=== PATIENT | female | born 1995 | race Caucasian/White ===

== ENCOUNTER → 2017-04-17 10:00 | Outpatient (CLI) | payer OTHER, BC, SELFPAY ==
[2017-04-18 10:18] LABS: Hep A Ab, IgM Negative (Negative); Hepatitis B Core Antibody IgM Negative (Negative); Hepatitis B Surface Antigen Negative (Negative)
[2017-04-19 06:40] LABS: HIV Screen 4th Generation wRfx Non Reactive (Non Reactive)
[2017-04-19 06:41] LABS: Hepatitis C Antibody <0.1 s/co ratio (0.0-0.9); Vitamin B12 189 pg/mL (232-1245)
== END ==
PROVIDERS: PCP Family Medicine; Visit Provider Family Medicine
DX: E53.8 Deficiency of other specified B group vitamins (principal); W46.0XXA Contact with hypodermic needle, initial encounter
CPT/HCPCS: 36415; 80074; 82607; 82746; 86703; G0432

== ENCOUNTER → 2017-09-04 10:43 | Outpatient (CLI) | payer OTHER, BC, SELFPAY ==
[2017-09-04 11:03] LABS: Basophils % 0.3 % (0.1-2.0); Eosinophils # 0.1 K/mm3 (0.0-0.4); Eosinophils % 1.3 % (0.1-12.0); Hemoglobin 14.7 g/dL (12.2-16.2); Lymphocytes % 28.1 K/mm3 (10-50); Mean Corpuscular HGB Conc 36.7 g/dL (31.8-35.4); Mean Corpuscular Hemoglobin 33.7 pg (27.0-31.2); Mean Corpuscular Volume 91.8 fl (81-99); Mean Platelet Volume 7.1 fl (7.4-10.4); Monocytes # 0.3 K/mm3 (0.1-1.0); Monocytes % 4.6 % (1.7-9.3); Neutrophils # 4.6 K/mm3 (1.8-7.8); Neutrophils % 65.7 % (37.0-80.0); Platelet Count 236 K/mm3 (142-424); Red Blood Count 4.36 M/mm3 (4.20-5.40); Red Cell Distribution Width 12.3 % (11.5-17.5)
[2017-09-05 15:24] LABS: Vitamin B12 452 pg/mL (232-1245)
== END ==
PROVIDERS: Visit Provider Family Medicine
DX: E53.8 Deficiency of other specified B group vitamins (principal)
CPT/HCPCS: 36415; 82607; 85025

== ENCOUNTER → 2018-01-05 14:42 | Outpatient (CLI) | payer OTHER, BC, SELFPAY ==
[2018-01-05 17:14] LABS: Free T4 (Free Thyroxine) 1.01 ng/dl (0.76-1.46); Thyroid Stimulating Hormone 2.44 uIU/ml (0.358-3.740)
[2018-01-08 03:56] LABS: Vitamin B12 280 pg/mL (232-1245)
== END ==
PROVIDERS: Visit Provider Emergency Medicine
DX: E53.8 Deficiency of other specified B group vitamins (principal); R53.83 Other fatigue
CPT/HCPCS: 36415; 82607; 84439; 84443

== ENCOUNTER → 2018-01-22 15:13 | Outpatient (CLI) | payer OTHER, SELFPAY ==
[2018-01-24 07:41] LABS: HIV Screen 4th Generation wRfx Non Reactive (Non Reactive)
[2018-01-24 16:01] LABS: Hep B Surface Ab, Qual Non Reactive (.); Hepatitis B Surface Antigen Negative (Negative); Hepatitis C Antibody <0.1 s/co ratio (0.0-0.9)
== END ==
PROVIDERS: Visit Provider Emergency Medicine
DX: S61.432D Puncture wound without foreign body of left hand, subsequent encounter (principal)
CPT/HCPCS: 86703; 86706; 87340; 87380; G0432

== ENCOUNTER → 2018-04-11 15:11 | Outpatient (CLI) | payer OTHER, BC, SELFPAY ==
--- NOTE | 2018-04-11 15:26 | XR_ITS ---
XR wrist LT min 3V HISTORY ITS.REASON: left wrist pain ORDERING PHYSICIAN: Florecita Sorenson MD PATIENT AGE: 22 years Comparison: 11/02/2016 FINDINGS: There has been a prior bone plate placed along the anterior distal aspect of the radius. There is good alignment. There is mild increased density of the lunate. This is of questionable clinical significance . Otherwise negative. IMPRESSION: 1. Prior ORIF distal radius with good alignment. 2. Slight sclerosis of the lunate raising the question of avascular necrosis of the lunate otherwise negative
== END ==
PROVIDERS: PCP Family Medicine; Visit Provider Orthopaedic Surgery
DX: M25.532 Pain in left wrist (principal)
CPT/HCPCS: 73110

== ENCOUNTER → 2018-04-25 14:48 | Outpatient (CLI) | payer OTHER, BC, SELFPAY ==
--- NOTE | 2018-04-25 14:52 | XR_ITS ---
XR wrist LT 2V HISTORY follow-up ORIF ITS.REASON: 20 degree LATERAL ORDERING PHYSICIAN: Florecita Sorenson MD PATIENT AGE: 22 years Comparison: 04/11/2018 FINDINGS: Only a 20 degree lateral views obtained. An anterior bone plate remains present stabilizing the old distal radial fracture. The second from the most proximal screw within the bone plate extends beyond the dorsal bony cortex x 1.5 mm. The most proximal screw appears to extend just beyond the bony cortex bilateral some 1 mm. IMPRESSION: The 2 proximal screws within the anterior radial bone plate appear to extend beyond the bony cortex of the dorsal radius as described above
== END ==
PROVIDERS: PCP Family Medicine; Visit Provider Orthopaedic Surgery
DX: M25.532 Pain in left wrist (principal)
CPT/HCPCS: 73100

== ENCOUNTER → 2018-05-07 14:31 | Outpatient (CLI) | payer OTHER, BC, SELFPAY ==
[2018-05-09 15:01] LABS: Vitamin B12 288 pg/mL (232-1245)
== END ==
PROVIDERS: Visit Provider Emergency Medicine
DX: E53.8 Deficiency of other specified B group vitamins (principal)
CPT/HCPCS: 36415; 82607

== ENCOUNTER → 2018-07-11 16:11 | Outpatient (CLI) | payer OTHER, BC, SELFPAY ==
[2018-07-13 10:38] LABS: Vitamin B12 359 pg/mL (232-1245)
== END ==
PROVIDERS: PCP Emergency Medicine; Visit Provider Emergency Medicine
DX: E53.8 Deficiency of other specified B group vitamins (principal)
CPT/HCPCS: 82607

== ENCOUNTER → 2018-09-05 15:39 | Outpatient (CLI) | payer OTHER, BC, SELFPAY ==
[2018-09-07 17:11] LABS: Vitamin B12 443
== END ==
PROVIDERS: Visit Provider Emergency Medicine
DX: E53.8 Deficiency of other specified B group vitamins (principal)
CPT/HCPCS: 36415; 82607

== ENCOUNTER → 2018-11-27 20:21 | Outpatient (CLI) | payer OTHER, BC, SELFPAY ==
[2018-11-29 23:10] LABS: Vitamin B12 542 pg/mL (232-1245)
== END ==
PROVIDERS: Visit Provider Emergency Medicine
DX: E53.8 Deficiency of other specified B group vitamins (principal)
CPT/HCPCS: 36415; 82607

== ENCOUNTER → 2018-12-04 13:36 | Outpatient (CLI) | payer OTHER, BC, SELFPAY ==
--- NOTE | 2018-12-04 13:38 | CA_ITS ---
APPROVED REPORT EXAM: Comprehensive 2D, Doppler, and color-flow Echocardiogram Soda Tester: Claudia Montanez RVT Ht: 5 ft 2 in Wt: 168lbs BSA: 1.78 BP: 126/81 mmHg Indications: Chest Pain, Palpitations,Sinus Tach, Hx SVT 2D Dimensions LVOT 2.00 cm (M/F) 1.5-2.5 M-Mode Dimensions RVDd 2.50 cm (0.9-2.6) LA Diam 2.70 cm (1.9-4.0) LVDd 4.60 cm (3.5-5.7) Ao Diam 2.70 cm (2.0-3.7) LVDs 2.70 cm (3.5-5.7) AV Cusp 1.80 cm (1.5-2.6) IVSd 1.20 cm (0.6-1.1) PWd 0.60 cm (0.6-1.1) EF (Teich) 72.30% FS 41.30% EDV (Teich) 97.30 mL ESV (Teich) 27.00 mL LV Diastology E/A Ratio 1.7 MED E' 9.46 (< 7 cm/sec) E'/MED E' Ratio 8.90 (>14) LAT E' 20.20 (<10 cm/sec) E/LAT E' Ratio 4.20 (>14) Aortic Valve AoV Peak Karl. 92.80 (50-130 cm/s) AO Peak GR. 3.00 mmHg Mitral Valve MV E Max Karl. 84.40 (40-130 cm/s) MV A Velocity 50.80 (40-130 cm/s) E/A Ratio 1.70 Pulmonary Valve PA Accel Time 151.00 (>120 msec) Left Ventricle Left atrium is normal size, left ventricle is normal size, there is no concentric left ventricular hypertrophy, visually estimated ejection fraction 55% with no regional wall motion abnormality. Right Ventricle Right atrium and right ventricular normal size and contractility. Aortic Valve Aortic valve is grossly normal, there is no aortic stenosis aortic insufficiency. Mitral Valve Mitral valve is grossly normal, there is mild mitral regurgitation. Tricuspid Valve Tricuspid valve is grossly normal, there is mild tricuspid regurgitation. Tricuspid regurgitation jet velocity is inadequate for question of the right ventricular systolic pressure. Pulmonic Valve Pulmonic valve is grossly normal. Great Vessels Aortic root is normal size. Pericardium No significant pericardial effusion noted. Conclusion 1. Normal left ventricular size, preserved left ventricular systolic function, visually estimated ejection fraction 55% with no regional wall motion abnormality, diastolic parameters are within normal range. 2. Mild mitral and tricuspid regurgitation 3. No significant pericardial effusion noted. Electronically signed by : Davi Serrano, 12/05/2018 06:52:15
== END ==
PROVIDERS: PCP Emergency Medicine; Visit Provider Urology
DX: R00.0 Tachycardia, unspecified (principal); R00.2 Palpitations; R07.9 Chest pain, unspecified
CPT/HCPCS: 93306

== ENCOUNTER → 2018-12-13 11:20 | Outpatient (CLI) | payer OTHER, BC, SELFPAY | PROVIDERS: Visit Provider Internal Medicine Cardiovascular Disease | DX: R00.2 Palpitations (principal); R42 Dizziness and giddiness; R53.83 Other fatigue | CPT/HCPCS: 93270 ==

== ENCOUNTER → 2019-01-03 22:04 | Outpatient (CLI) | payer OTHER, BC, SELFPAY ==
[2019-01-03 22:34] VITALS: BMI 27.4
== END ==
PROVIDERS: PCP Emergency Medicine; Visit Provider Emergency Medicine
DX: J32.9 Chronic sinusitis, unspecified (principal)
CPT/HCPCS: 96372; G0463

== ENCOUNTER → 2019-05-08 19:53 | Outpatient (CLI) | payer OTHER, SELFPAY ==
[2019-05-10 15:43] LABS: Vitamin B12 467 pg/mL (232-1245)
[2019-05-10 15:44] LABS: Folate 11.8 ng/mL (>3.0)
== END ==
PROVIDERS: PCP Family Medicine; Visit Provider Nurse Practitioner
DX: E53.8 Deficiency of other specified B group vitamins (principal)
CPT/HCPCS: 36415; 82607; 82746

== ENCOUNTER 2019-12-06 02:43 | Emergency (ER) | payer OTHER, BC, SELFPAY ==
[2019-12-06 02:44] VITALS: BP 135/85; PULSE 102; RESP 16; TEMP 36.7; O2SAT 98; BMI 32.9
--- NOTE | 2019-12-06 03:12 | HMH.EDWNDL ---
ED Disposition Clinical Impression: Laceration Disposition: Home, Self-Care Condition on Discharge: Good Instructions: DI for Laceration Repair Additional Instructions: suture out 10 days Referrals: Nolan Colon MD [Primary Care Provider] - - Critical Care Critical Care Time: No Attestation: On 12/06/19, the high probability of a clinically significant, sudden or life threatening deterioration of the following system(s) required my full and direct attention, intervention and personal management. The time I documented below is in addition to time spent performing reported procedures but includes the following listed in this critical care notation. Medical Decision Making - Medical Records Medical records reviewed: Yes: I reviewed the patient's medical records. - Neri Inquiry Pt receiving controlled substance: No Vital Signs: 12/06/19 02:44 Temperature 98.1 F Temperature Source Oral Pulse Rate [Left Radial] 102 H Respiratory Rate 16 Blood Pressure [Right Arm] 135/85 Blood Pressure Mean [Right Arm] 101 Blood Pressure Source [Right Arm] Automatic Cuff Blood Pressure Position [Right Arm] Sitting 02 Sat by Pulse Oximetry 98 Oxygen Delivery Method Room Air Wound/Laceration HPI - General Chief Complaint: Wound/Laceration Stated Complaint: AO cut L foot on glass Time Seen by Provider: 12/06/19 03:00 Mode of Arrival: Ambulatory Source of Information: Patient, Medical Record Limitations: No Limitations Description of Symptoms (Recalled from ER Triage Doc. by RN): pt broke a wine glass and stepped on one of the glass pieces. pt has a lac to the bottom of her left foot - History of Present Illness HPI narrative: lac to sole of lt foot tonight Onset (ago): hour(s) Extremity Location: Left: foot Place: home Patient tetanus UTD: Yes Context: accidental Associated symptoms: none - Related Data Home Medications Medication Instructions Recorded Confirmed vitamin [id number] B1 1,000 100 ml IM MONTHLY 11/28/18 11/05/19 mcg-100 mg/mL injection solution vitamin B complex 1 tab PO DAILY 07/11/19 11/05/19 Previous Rx's Medication Instructions Recorded norgestimate 0.25 mg-ethinyl 1 tab PO DAILY #28 tab 05/06/19 estradiol 35 mcg tablet propranolol 40 mg tablet 40 mg PO TID #90 tab 07/11/19 Allergies Allergy/AdvReac Type Severity Reaction Status Date / Time cephalexin [From KEFLEX] Allergy Mild Verified 11/05/19 16:[address] [facility] History - Hepatitis A Screen Drug use history?: No High risk sexual behaviors?: No History of sexually transmitted infection?: No Currently employed?: No Childcare worker?: No Do you have indoor plumbing?: Yes Do you have electricity?: Yes Attestation statement:: This patient has been screened for Hepatitis A risk factors. I have reviewed the patient's past medical history: Yes Medical History: Reports:: Palpitations, Supraventricular Tachycardia Comment: [place] Laterality Cases: Left: Other Other Surgeries: Yes: No Previous Surgery Amputation: No Fractures: No Comment: left wrist- metal plate - Social History Smoking Status: Never smoker Alcohol Intake: never Alcohol Intake Frequency:: holidays/special occasions only Substance Use Type: denies use Occupational Status: employed Family Hx:: Cancer, Diabetes, Heart Attack, Stroke, Hypertension, Hyperlipidemia ROS Obtained: Yes All systems reviewed & no additional complaints - Constitutional Constitutional: Denies fever(s) - Cardiovascular Cardiovascular: Denies chest pain - Respiratory Respiratory: No dyspnea - Gastrointestinal Gastrointestingal: Denies: abdominal pain - Genitourinary Female Genitourinary: Denies hematuria - Musculoskeletal Musculoskeletal: Denies joint pain - Integumentary/Breasts Skin/Breast: Reports as per HPI, Reports other (1.5 cm lac lt foot ) Physical Exam - General General appearance: alert - Head Head exam: normocephalic - Eye Eye e
[2019-12-06 03:28] VITALS: BP 122/75; PULSE 95; RESP 18; TEMP 36.7; O2SAT 99
== END 2019-12-06 03:30 | disposition home or self-care (01) ==
PROVIDERS: Emergency Provider Emergency Medicine; PCP Family Medicine
DX: S91.312A Laceration without foreign body, left foot, initial encounter (principal); W22.8XXA Striking against or struck by other objects, initial encounter; Y92.019 Unspecified place in single-family (private) house as the place of occurrence of the external cause; I47.1 Supraventricular tachycardia; Z88.1 Allergy status to other antibiotic agents
CPT/HCPCS: 12001; 99282

== ENCOUNTER → 2019-12-19 09:47 | Outpatient (CLI) | payer OTHER, BC, SELFPAY ==
[2019-12-19 11:25] LABS: 25-OH Vitamin D, Total 39.4 ng/mL (30-100)
[2019-12-19 12:14] LABS: Vitamin B12 355 pg/mL (239-931)
[2019-12-19 12:15] LABS: Folate 6.25 ng/mL
[2019-12-20 17:32] LABS: Antiparietal Cell Antibody 1.2 Units (0.0-20.0)
[2019-12-25 13:48] LABS: Vitamin B1 113.8 nmol/L (66.5-200.0)
[2020-01-01 03:16] LABS: Vitamin B6 9.3 ug/L (2.0-32.8)
== END ==
PROVIDERS: Visit Provider Family Medicine
DX: R53.83 Other fatigue (principal); D51.8 Other vitamin B12 deficiency anemias; G47.10 Hypersomnia, unspecified
CPT/HCPCS: 36415; 82306; 82607; 82746; 83516; 84207; 84425

== ENCOUNTER → 2020-01-28 01:02 | Outpatient (CLI) | payer OTHER, BC, SELFPAY ==
[2020-01-29 15:48] LABS: Covid-19 Nasal PCR Sendout Lex Not Detected
== END ==
PROVIDERS: PCP Family Medicine
DX: Z01.818 Encounter for other preprocedural examination (principal)
CPT/HCPCS: U0004

== ENCOUNTER 2020-03-13 00:57 | Emergency (ER) | payer OTHER, BC, SELFPAY ==
--- NOTE | 2020-03-13 01:00 | PC.NURSE ---
no additional orders per md at this time.
--- NOTE | 2020-03-13 01:01 | ECG_ITS ---
APPROVED REPORT Exam: Resting ECG HR:147 bpm ECG Measurements Heart Rate 147 AXES ND 130 P 77 QRSd 80 QRS 70 QT 266 T 29 QTc 416 Conclusion Sinus tachycardia Nonspecific ST abnormality Abnormal ECG Electronically signed by : Nolan Christie, 03/13/2020 06:00:11
[2020-03-13 01:02] VITALS: BP 151/110; PULSE 156; RESP 16; TEMP 36.9; O2SAT 100; BMI 25.7
--- NOTE | 2020-03-13 01:02 | HMH.EDGENADL ---
ED Disposition Clinical Impression: Sinus tachycardia, Hypokalemia Disposition: Home, Self-Care Condition on Discharge: Good Instructions: Cardiac Arrhythmia (Alternative Therapy) Additional Instructions: Take potassium as prescribed, also eat a normal diet. Drink plenty of clear fluids and avoid any stimulant use. Return if recurrent palpitations, lightheadedness, syncope, chest pain, weakness, or other new/recurrent symptoms. Prescriptions: Potassium Chloride 20 meq PO DAILY 3 Days #3 tablet.er Prescription Printed Referrals: PCP,No [Primary Care Provider] - - Critical Care Critical Care Time: No Attestation: On , the high probability of a clinically significant, sudden or life threatening deterioration of the following system(s) required my full and direct attention, intervention and personal management. The time I documented below is in addition to time spent performing reported procedures but includes the following listed in this critical care notation. Medical Decision Making - Medical Records Medical records reviewed: Yes: I reviewed the patient's medical records. - Neri Inquiry Pt receiving controlled substance: No Vital Signs: 03/13/20 01:02 03/13/20 01:12 03/13/20 01:16 Temperature 98.5 F Temperature Source Oral Pulse Rate [Right Brachial] 156 H 103 H 106 H Respiratory Rate 16 16 16 Blood Pressure [Right Arm] 151/110 H 132/91 H 128/95 H Blood Pressure Mean [Right Arm] 123 104 106 Blood Pressure Source [Right Arm] Automatic Cuff Blood Pressure Position [Right Arm] Sitting Sitting 02 Sat by Pulse Oximetry 100 98 100 Oxygen Delivery Method Room Air Room Air Room Air 03/13/20 01:30 03/13/20 02:00 Temperature Temperature Source Pulse Rate [Right Brachial] 98 H 94 H Respiratory Rate 17 15 Blood Pressure [Right Arm] 123/87 131/91 H Blood Pressure Mean [Right Arm] 99 104 Blood Pressure Source [Right Arm] Automatic Cuff Automatic Cuff Blood Pressure Position [Right Arm] Supine Supine 02 Sat by Pulse Oximetry 100 98 Oxygen Delivery Method Room Air Room Air - Lab Data Lab Results 03/13/20 01:00: WBC 11.0 H, RBC 4.97, Hgb 15.4, Hct 45.8, MCV 92.2, MCH 31.0, MCHC 33.6, RDW 13.0, Plt Count 320, MPV 7.1 L, Neut % (Auto) 70.8, Lymph % (Auto) 23.1, [place] % (Auto) 5.3, Eos % (Auto) 0.5, Baso % (Auto) 0.4, Neut # (Auto) 7.8, Lymph # (Auto) 2.5, [place] # (Auto) 0.6, Eos # (Auto) 0.1, Baso # (Auto) 0.0 03/13/20 01:00: Sodium 137, Potassium 3.2 L, Chloride 103, Carbon Dioxide 22, Anion Gap 15.2 H, BUN 11, Creatinine 0.70, Estimated Creat Clear 129, Estimated GFR 103, Est GFR ( Amer) 124, Glucose 152 H, Calcium 9.6, Magnesium 1.9, Total Bilirubin 0.3, AST 23, ALT 16, Alkaline Phosphatase 64, Troponin I < 0.01, Total Protein 8.3 H, Albumin 4.7, Globulin 3.6 H, Albumin/Globulin Ratio 1.3, TSH 3.93 03/13/20 01:00: SARS-CoV-2 IgG Ab (Rapid) Negative, SARS-CoV-2 IgM Ab (Rapid) Negative 03/13/20 01:00: Serum HCG, Qual Negative Result diagrams: 03/13/20 01:00 03/13/20 01:00 Orders (Tests/Meds): ED MEDICATIONS Generic Name Dose Route Start Last Admin Trade Name Freq PRN Reason Stop Dose Admin Lactated Ringer's 1,000 mls @ 999 mls/hr 03/13/20 01:15 03/13/20 01:15 Lactated Ringer's 1000 Ml Bag IV 03/13/20 02:15 999 mls/hr .Q1H1M [place] Administration Sodium Chloride 1,000 mls @ 999 mls/hr 03/13/20 01:15 03/13/20 01:15 Sod Chlor 0.9% 1000ml Bag IV 03/13/20 02:15 999 mls/hr .Q1H1M [place] Administration Discontinued Medications Generic Name Dose Route Start Last Admin Trade Name Freq PRN Reason Stop Dose Admin Potassium Chloride/Water 100 mls @ 50 mls/hr 03/13/20 02:08 Potassium Chloride 20meq/100ml Ivpb IV 03/13/20 04:07 ONCE ONE Metoprolol Tartrate 5 mg 03/13/20 01:09 03/13/20 01:11 Metoprolol Tartrate 5mg/5ml Vial IV 03/13/20 01:10 5 mg ONCE ONE Administration Metoprolol Tartrate 50 mg 03/13/20 01:19 03/13/20 01:32 Metoprolol Tartrate
--- NOTE | 2020-03-13 01:07 | XR_ITS ---
PROCEDURE: XR CHEST PORTABLE CLINICAL HISTORY: palpitations COMPARISON: CR CXR CHEST(2 VIEWS-NOT PORTABLE) from 03/18/2016 CR XR CHEST 2V from 11/28/[address] ANGIO CHEST from 11/28/2018 FINDINGS: The cardiomediastinal silhouette and pulmonary vascularity are within normal limits. The lungs are clear without infiltrates, suspicious nodules, or pleural effusions. No acute bony abnormalities. IMPRESSION: No acute findings. Dictated by: Anatoliy Nixon MD 03/13/2020 07:01 Anatoliy Nixon MD in [place] 03/13/2020 07:01
[2020-03-13 01:12] VITALS: BP 132/91; PULSE 103; RESP 16; O2SAT 98
[2020-03-13 01:16] VITALS: BP 128/95; PULSE 106; RESP 16; O2SAT 100
[2020-03-13 01:17] LABS: Basophils % 0.4 % (0.1-2.0); Eosinophils # 0.1 K/mm3 (0.0-0.4); Eosinophils % 0.5 % (0.1-12.0); Hematocrit 45.8 % (37.0-47.0); Hemoglobin 15.4 g/dL (12.2-16.2); Lymphocytes # 2.5 K/mm3 (0.7-4.5); Lymphocytes % 23.1 % (10-50); Mean Corpuscular HGB Conc 33.6 g/dL (31.8-35.4); Mean Corpuscular Volume 92.2 fl (81-99); Mean Platelet Volume 7.1 fl (7.4-10.4); Monocytes # 0.6 K/mm3 (0.1-1.0); Monocytes % 5.3 % (1.7-9.3); Neutrophils # 7.8 K/mm3 (1.8-7.8); Neutrophils % 70.8 % (37.0-80.0); Platelet Count 320 K/mm3 (142-424); Red Blood Count 4.97 M/mm3 (4.20-5.40)
[2020-03-13 01:23] LABS: Chloride 103 mmol/L (98-107); Potassium 3.2 mmoL/L (3.5-5.1); Sodium 137 mmol/L (136-145)
[2020-03-13 01:25] LABS: Alanine Aminotransferase 16 U/L (12-78); Aspartate Amino Transferase 23 U/L (14-36); Blood Urea Nitrogen 11 mg/dl (7-17); Creatinine Clearance Estimated 129 mL/min (50-200); Estimated Glomerular Filt Rate 103 ml/min (>60); GFR (African American) 124 ML/MIN (>60)
[2020-03-13 01:26] LABS: Albumin Level 4.7 g/dl (3.5-5.0); Albumin/Globulin Ratio 1.3 (1.1-1.8); Alkaline Phosphatase 64 U/L (38-126); Anion Gap 15.2 mEq/L (5-15); Bilirubin,Total 0.3 mg/dl (0.2-1.3); Calcium 9.6 mg/dl (8.4-10.2); Carbon Dioxide 22 mmol/L (22.0-30.0); Globulin 3.6 g/dL (1.3-3.2); Glucose 152 mg/dl (74-100); Magnesium 1.9 mg/dl (1.6-2.3); Total Protein,Serum 8.3 g/dl (6.3-8.2)
[2020-03-13 01:30] VITALS: BP 123/87; PULSE 98; RESP 17; O2SAT 100
--- NOTE | 2020-03-13 01:45 | ECG_ITS ---
APPROVED REPORT Exam: Resting ECG HR:110 bpm ECG Measurements Heart Rate 110 AXES MO 144 P 78 QRSd 86 QRS 78 QT 324 T 61 QTc 438 Conclusion Sinus tachycardia Otherwise normal ECG Electronically signed by : Nolan Christie, 03/13/2020 06:00:03
[2020-03-13 01:47] LABS: HCG Qualitative, Serum Negative (Negative); Troponin I < 0.01 ng/ml (0.00-0.034)
[2020-03-13 01:57] LABS: Thyroid Stimulating Hormone 3.93 uIU/mL (0.465-4.68)
[2020-03-13 02:00] VITALS: BP 131/91; PULSE 94; RESP 15; O2SAT 98
[2020-03-13 02:05] LABS: Coronavirus 19 IgG Antibody Negative (Negative); Coronavirus 19 IgM Antibody Negative (Negative)
[2020-03-13 02:23] VITALS: BP 124/84; PULSE 98; RESP 16; TEMP 36.8; O2SAT 98
== END 2020-03-13 02:28 | disposition home or self-care (01) ==
PROVIDERS: Emergency Provider Emergency Medicine
DX: I47.1 Supraventricular tachycardia (principal); E87.6 Hypokalemia; Z01.84 Encounter for antibody response examination
CPT/HCPCS: 71045; 80053; 83735; 84443; 84484; 84703; 85025; 86328; 93005; 96365; 96366; 96375; 99284

== ENCOUNTER → 2020-10-19 18:55 | Outpatient (CLI) | payer OTHER, BC, SELFPAY ==
[2020-10-19 20:20] LABS: 25-OH Vitamin D, Total 39.7 ng/mL (30-100)
[2020-10-19 21:07] LABS: Vitamin B12 439 pg/mL (239-931)
[2020-10-19 21:14] LABS: Folate 6.81 ng/mL
[2020-10-22 13:18] LABS: Antinuclear Antibodies, IFA Negative (.)
[2020-10-23 13:51] LABS: Vitamin B1 121.3 nmol/L (66.5-200.0)
[2020-10-23 19:30] LABS: Vitamin B6 13.9 ug/L (2.0-32.8)
== END ==
PROVIDERS: Visit Provider Family Medicine
DX: R53.83 Other fatigue (principal); D51.8 Other vitamin B12 deficiency anemias; G47.10 Hypersomnia, unspecified; E66.3 Overweight; Z68.30 Body mass index [BMI] 30.0-30.9, adult
CPT/HCPCS: 36415; 82306; 82607; 82746; 84207; 84425; 86038

== ENCOUNTER 2020-11-23 21:30 | Emergency (ER) | payer OTHER, SELFPAY ==
[2020-11-23 21:30] VITALS: BP 158/78; PULSE 97; RESP 16; TEMP 36.7; O2SAT 99; BMI 31.1
[2020-11-23 21:58] VITALS: BP 158/78; PULSE 97; RESP 16; TEMP 36.7; O2SAT 99
[2020-11-23 22:00] LABS: Basophils # 0.1 K/mm3 (0-0.2); Basophils % 0.6 % (0.1-2.0); Eosinophils # 0.1 K/mm3 (0.0-0.4); Eosinophils % 1.5 % (0.1-12.0); Hematocrit 43.1 % (37.0-47.0); Hemoglobin 13.6 g/dL (12.2-16.2); Lymphocytes # 2.9 K/mm3 (0.7-4.5); Lymphocytes % 32.6 % (10-50); Mean Corpuscular HGB Conc 31.6 g/dL (31.8-35.4); Mean Corpuscular Hemoglobin 29.9 pg (27.0-31.2); Mean Corpuscular Volume 94.6 fl (81-99); Mean Platelet Volume 8.1 fl (7.4-10.4); Monocytes # 0.5 K/mm3 (0.1-1.0); Monocytes % 5.7 % (1.7-9.3); Neutrophils # 5.4 K/mm3 (1.8-7.8); Neutrophils % 59.6 % (37.0-80.0); Platelet Count 276 K/mm3 (142-424); Red Blood Count 4.56 M/mm3 (4.20-5.40); Red Cell Distribution Width 12.7 % (11.5-17.5)
--- NOTE | 2020-11-23 22:04 | HMH.EDWNDL ---
ED Disposition Clinical Impression: Needle stick injury Disposition: Home, Self-Care Condition on Discharge: Good Instructions: DI for Puncture Wound Additional Instructions: see pcp as needed Referrals: Teodoro Fragoso MD [Primary Care Provider] - - Critical Care Critical Care Time: No Attestation: On 11/23/20, the high probability of a clinically significant, sudden or life threatening deterioration of the following system(s) required my full and direct attention, intervention and personal management. The time I documented below is in addition to time spent performing reported procedures but includes the following listed in this critical care notation. Medical Decision Making - Medical Records Medical records reviewed: Yes: I reviewed the patient's medical records. - Neri Inquiry Pt receiving controlled substance: No Vital Signs: 11/23/20 21:30 11/23/20 21:58 Temperature 98.1 F 98.1 F Temperature Source Oral Oral Pulse Rate 97 H Pulse Rate [Right Radial] 97 H Respiratory Rate 16 16 Blood Pressure 158/78 H Blood Pressure [Right Arm] 158/78 H Blood Pressure Mean [Right Arm] 104 Blood Pressure Source Automatic Cuff Blood Pressure Source [Right Arm] Automatic Cuff Blood Pressure Position Sitting Blood Pressure Position [Right Arm] Sitting 02 Sat by Pulse Oximetry 99 Oxygen Delivery Method Room Air Room Air Orders (Tests/Meds): ORDERS Category Date Time Status Complete Blood Count Auto Diff Stat Lab 11/23/20 21:55 Received HBsAg Screen Stat Lab 11/23/20 21:55 Received HIV Panel [id number] Stat Lab 11/23/20 21:55 Received Hep B Surface Ab, Qual Stat Lab 11/23/20 21:55 Received Hepatitis C Antibody Stat Lab 11/23/20 21:55 Received Liver Panel Stat Lab 11/23/20 21:55 Received PT/PTT Stat Lab 11/23/20 21:55 Received Medical Decision Narrative: workman comp needle stick protocol Wound/Laceration HPI - General Chief Complaint: Recheck/Abnormal Lab/Rx Stated Complaint: Needle Stick Time Seen by Provider: 11/23/20 21:45 Mode of Arrival: Ambulatory Source of Information: Patient, Medical Record Limitations: No Limitations Description of Symptoms (Recalled from ER Triage Doc. by RN): Pt was stuck by needle during a lab draw. - History of Present Illness HPI narrative: needle stick at work Onset (ago): minute(s) Extremity Location: Left: hand Place: work Context: accidental Associated symptoms: none - Related Data Home Medications Medication Instructions Recorded Confirmed vitamin N17-[id number] B1 1,000 100 ml IM MONTHLY 11/28/18 10/15/20 mcg-100 mg/mL injection solution Previous Rx's Medication Instructions Recorded ivabradine 5 mg tablet 2.5 mg PO BID #60 tab 10/15/20 sertraline 50 mg tablet 50 mg PO DAILY #30 tab 10/22/20 Allergies Allergy/AdvReac Type Severity Reaction Status Date / Time cephalexin [From KEFLEX] Allergy Mild Verified 10/15/20 14:18 [facility] History - Hepatitis A Screen Drug use history?: No High risk sexual behaviors?: No History of sexually transmitted infection?: No Currently employed?: No Childcare worker?: No Do you have indoor plumbing?: Yes Do you have electricity?: Yes Attestation statement:: This patient has been screened for Hepatitis A risk factors. I have reviewed the patient's past medical history: Yes Medical History: Reports:: Anxiety, Depression, Palpitations, Supraventricular Tachycardia Comment: [place] Laterality Cases: Left: Other Other Surgeries: Yes: No Previous Surgery Amputation: No Fractures: No Comment: left wrist- metal plate - Social History Smoking Status: Never smoker Alcohol Intake: never Alcohol Intake Frequency:: a few times a month Substance Use Type: denies use Occupational Status: employed - Psychiatric History Pschychiatric History:: Reports:: Anxiety, Depression Family Hx:: Cancer, Diabetes, Heart Attack, Stroke, Hypertension, Hyperlipidemia ROS Obtained: Y
[2020-11-23 22:08] LABS: Alanine Aminotransferase 19 U/L (12-78); Albumin Level 4.4 g/dl (3.5-5.0); Alkaline Phosphatase 64 U/L (38-126); Aspartate Amino Transferase 29 U/L (14-36); Bilirubin,Direct 0.1 mg/dl (0.0-0.4); Bilirubin,Indirect 0.1 mg/dL (0.0-0.9); Bilirubin,Total 0.2 mg/dl (0.2-1.3); Bilirubin,Unconjugated 0.1 mg/dL (0.0-1.1); Total Protein,Serum 7.6 g/dl (6.3-8.2)
[2020-11-23 22:20] LABS: Activated Partial Thrombo Time 26.8 seconds (22.8-30.6); Prothrombin Time 10.6 seconds (10.1-12.5)
[2020-11-23 22:28] LABS: INR 0.89 (0.9-1.1)
[2020-11-25 08:14] LABS: HIV Screen 4th Generation wRfx Non Reactive (Non Reactive)
[2020-11-25 11:20] LABS: Hep B Surface Ab, Qual Non Reactive (.); Hepatitis B Surface Antigen Negative (Negative); Hepatitis C Antibody 0.1 s/co ratio (0.0-0.9)
== END 2020-11-23 22:25 | disposition home or self-care (01) ==
PROVIDERS: Emergency Provider Emergency Medicine; PCP Emergency Medicine
DX: S61.432A Puncture wound without foreign body of left hand, initial encounter (principal); W26.8XXA Contact with other sharp object(s), not elsewhere classified, initial encounter; Y92.69 Other specified industrial and construction area as the place of occurrence of the external cause; Y99.0 Civilian activity done for income or pay
CPT/HCPCS: 36415; 80076; 85025; 85610; 85730; 86703; 86706; 87340; 87380; 99281; G0432

== ENCOUNTER → 2020-11-30 13:38 | Outpatient (CLI) | payer OTHER, BC, SELFPAY ==
--- NOTE | 2020-11-30 13:39 | US_ITS ---
PROCEDURE: US TRANSVAGINAL CLINICAL INDICATION: Pelvic Pain COMPARISON: No exams were available for comparison FINDINGS: UTERUS: 6cm x 4cmx 3cm with a combined endometrial thickness of 2.1mm LEFT OVARY: 3cmxx1.7cm RIGHT OVARY: [id number] There are several bilateral ovarian follicles. No cul-de-sac fluid. Bilateral ovarian blood flow. IMPRESSION: Multiple bilateral ovarian follicles raising the question polycystic ovaries otherwise Dictated by: Anatoliy Nixon MD 11/30/2020 18:24 Anatoliy Nixon MD in [place] 11/30/2020 18:24
== END ==
PROVIDERS: PCP Emergency Medicine; Visit Provider Nurse Practitioner Obstetrics & Gynecology
DX: R10.2 Pelvic and perineal pain (principal)
CPT/HCPCS: 76830

== ENCOUNTER → 2021-01-09 16:04 | Outpatient (CLI) | payer OTHER, BC, SELFPAY ==
[2021-01-09 16:17] LABS: Coronavirus 19, PCR Not Detected (NotDetected); Influenza A, PCR Not Detected (NotDetected); Influenza B, PCR Not Detected (NotDetected)
== END ==
PROVIDERS: PCP Family Medicine; Visit Provider Nurse Practitioner Family
DX: Z20.822 Contact with and (suspected) exposure to COVID-19 (principal)
CPT/HCPCS: C9803; U0003; U0005

== ENCOUNTER → 2021-04-08 21:12 | Outpatient (CLI) | payer OTHER, BC, SELFPAY ==
[2021-04-09 00:40] VITALS: BP 132/67; PULSE 98; RESP 16; TEMP 36.6; O2SAT 99
--- NOTE | 2021-04-09 00:41 | PC.NURSE ---
#20g IV inserted in Right AC and NS infused. 4mg Zofran given IV. Pt tolerated well
== END ==
PROVIDERS: Visit Provider Emergency Medicine
DX: R11.2 Nausea with vomiting, unspecified (principal)
CPT/HCPCS: 96365

== ENCOUNTER → 2021-04-19 14:03 | Outpatient (CLI) | payer OTHER, SELFPAY ==
--- NOTE | 2021-04-19 14:05 | CA_ITS ---
APPROVED REPORT EXAM: Comprehensive 2D, Doppler, and color-flow Echocardiogram Nascar Racer: Claudia Montanez RVT Ht: 5 ft 2 in Wt: 175lbs BSA: 1.81 BP: 132/92 mmHg Indications: TACHYCARDIA,HTN,PALPS,SMOKER,CP 2D Dimensions LVOT 1.91 cm (M/F) 1.5-2.5 LA Volume 18.70 mL LA Volume Index 10.38 mL/m2 (M/F) 16-34 M-Mode Dimensions RVDd 2.57 cm (0.9-2.6) LA Diam 2.90 cm (1.9-4.0) LVDd 4.04 cm (3.5-5.7) Ao Diam 2.61 cm (2.0-3.7) LVDs 2.69 cm (3.5-5.7) IVSd 0.88 cm (0.6-1.1) PWd 0.44 cm (0.6-1.1) EF (Teich) 62.60% FS 33.40% EDV (Teich) 71.70 mL TAPSE 2.21 (<1.7) ESV (Teich) 26.80 mL LV Diastology E Decel Time 120.00 (160-240 msec) E/A Ratio 1.5 MED E' 8.60 (< 7 cm/sec) E'/MED E' Ratio 9.53 (>14) LAT E' 14.10 (<10 cm/sec) E/LAT E' Ratio 5.82 (>14) Aortic Valve AO Peak GR. 4.00 mmHg Mitral Valve MV E Max Karl. 82.00 (40-130 cm/s) MV A Velocity 55.00 (40-130 cm/s) E/A Ratio 1.50 MV Decel. Time 120.00 (160-240 ms) MV PHT 35.00 ms Pulmonary Valve PV Peak Velocity 63.00 (50-150 cm/s) Left Ventricle Left atrium is normal size, left ventricle is normal size, there is no concentric left ventricular hypertrophy, visually estimated ejection fraction 55% with no regional wall motion abnormality, diastolic parameters are within normal range. Right Ventricle Right atrium and right ventricle are normal size and contractility. Aortic Valve Aortic valve is grossly normal and there is no aortic stenosis or aortic insufficiency. Mitral Valve Mitral valve grossly normal, there is trace mitral regurgitation. Tricuspid Valve Tricuspid grossly normal, there is trace tricuspid regurgitation, tricuspid regurgitation jet velocity is inadequate for calculation of the right ventricular systolic pressure. Pulmonic Valve Pulmonic valve is poorly visualized. Great Vessels Aortic root is normal size. Inferior vena cava is normal size with normal inspiratory collapse. Pericardium No significant pericardial effusion noted. Conclusion 1. Normal left ventricular size, preserved left ventricular systolic function, visually estimated ejection fraction 55% with no regional wall motion abnormality, diastolic parameters are within normal range. 2. Trace mitral and tricuspid regurgitation. 3. No significant pericardial effusion noted. 4. Inferior vena cava is normal size with normal inspiratory collapse. Electronically signed by : Davi Serrano MD 04/19/2021 20:34:02
== END ==
PROVIDERS: Visit Provider Urology
DX: R07.9 Chest pain, unspecified (principal); R00.2 Palpitations; I10 Essential (primary) hypertension
CPT/HCPCS: 93306

== ENCOUNTER 2021-04-30 11:42 | Outpatient (CLI) | payer OTHER, SELFPAY ==
[2021-04-30 15:21] VITALS: BMI 29.2
== END 2021-04-30 11:55 | disposition home or self-care (01) ==
PROVIDERS: PCP Family Medicine; Visit Provider Nurse Practitioner
DX: R06.00 Dyspnea, unspecified (principal)

== ENCOUNTER 2021-05-24 12:50 | Emergency (ER) | payer OTHER, SELFPAY ==
[2021-05-24 12:51] VITALS: BP 156/81; PULSE 115; RESP 16; TEMP 36.8; O2SAT 100; BMI 31.1
--- NOTE | 2021-05-24 14:18 | HMH.EDBACK ---
ED Disposition Clinical Impression: Lumbar radiculopathy Disposition: Home, Self-Care Condition on Discharge: Good Instructions: DI for Lumbar Radiculopathy Additional Instructions: Please follow-up with your primary care physician in 2 to 3 days for further management. Please continue your physical therapy with your chiropractor. Please also utilize the medications prescribed Robaxin, Toradol and lidocaine patches. Please return back to the emergency department if you become unable to walk, urinary retention, fecal incontinence or any other concerning symptoms. Prescriptions: Ketorolac Tromethamine [Toradol 10mg tablet] 10 mg PO Q8HP PRN #10 tab MDD 40mg/day PRN Reason: (Criminal Analyst Use Only) Pain Per Pt Transmission Status: Received by [facility] Lidocaine [Lidocaine 5% patch] 1 patch TP DAILYP PRN #15 patch PRN Reason: (Criminal Analyst Use Only) Pain Per Pt Transmission Status: Received by [facility] methocarbamoL [Methocarbamol 500mg Tablet] 500 mg PO BID 30 Days #60 tab Transmission Status: Received by [facility] Referrals: Provider,Referral, [Primary Care Provider] - Forms: Work/School Release - Critical Care Critical Care Time: No Attestation: On 05/24/21, the high probability of a clinically significant, sudden or life threatening deterioration of the following system(s) required my full and direct attention, intervention and personal management. The time I documented below is in addition to time spent performing reported procedures but includes the following listed in this critical care notation. Medical Decision Making - Medical Records Medical records reviewed: Yes: I reviewed the patient's medical records. - Neri Inquiry Pt receiving controlled substance: No Vital Signs: 05/24/21 12:51 05/24/21 14:31 Temperature 98.3 F 98.3 F Temperature Source Oral Oral Pulse Rate 91 H Pulse Rate [Right] 115 H Respiratory Rate 16 17 Blood Pressure 141/74 H Blood Pressure [Right Arm] 156/81 H Blood Pressure Mean [Right Arm] 106 Blood Pressure Source [Right Arm] Automatic Cuff Blood Pressure Position [Right Arm] Sitting 02 Sat by Pulse Oximetry 100 Oxygen Delivery Method Room Air Room Air - Lab Data Lab results reviewed: Yes: I reviewed the patient's lab results. Orders (Tests/Meds): ED MEDICATIONS Discontinued Medications Generic Name Dose Route Start Last Admin Trade Name Freq PRN Reason Stop Dose Admin Ketorolac Tromethamine 30 mg 05/24/21 13:06 05/24/21 13:35 Ketorolac 30mg/Ml Vial IM 05/24/21 13:07 30 mg ONCE ONE Administration Lidocaine 1 each 05/24/21 13:06 05/24/21 13:35 Lidocaine 5% Transdermal Patch TP 05/24/21 13:07 1 each ONCE ONE Administration Methocarbamol 500 mg 05/24/21 13:15 05/24/21 13:35 Methocarbamol 500mg Tablet PO 06/23/21 13:14 500 mg BID [place] Administration Medical Decision Narrative: Mrs. Cruz is a 25-year-old female with past medical history for chronic lower back pain who presents to the emergency department progressively worsening lower back pain described as a shooting sensation down both legs bilaterally. Patient denies any trauma. Patient is neurovascularly intact and hemodynamically stable on arrival. Physical exam no focal neurological deficits normal sensorimotor exam. Low suspicion for cauda equina given patient has no urinary retention, fecal incontinence or any other concerning symptoms will not investigate further. No concern for fractures as patient had no trauma and has no other risk factors for poor bone density. Patient is given lidocaine patches, Robaxin and Toradol for symptomatic relief. Upon reassessment patient reports symptoms have drastically improved. Patient is instructed to discuss with her primary care physician regarding physical therapy. Patient is also discharged with Robaxin, Toradol and lidocaine patches for outpatient management.Discharged in stable conditio
[2021-05-24 14:31] VITALS: BP 141/74; PULSE 91; RESP 17; TEMP 36.8; O2SAT 100
== END 2021-05-24 14:33 | disposition home or self-care (01) ==
PROVIDERS: Emergency Provider Student in an Organized Health Care Education/Training Program
DX: M54.16 Radiculopathy, lumbar region (principal); R00.2 Palpitations; I47.1 Supraventricular tachycardia; L81.8 Other specified disorders of pigmentation; G89.29 Other chronic pain; F32.A Depression, unspecified; F41.9 Anxiety disorder, unspecified; F17.210 Nicotine dependence, cigarettes, uncomplicated; Z79.890 Hormone replacement therapy; Z79.899 Other long term (current) drug therapy; Z88.8 Allergy status to other drugs, medicaments and biological substances; Z82.49 Family history of ischemic heart disease and other diseases of the circulatory system; Z83.3 Family history of diabetes mellitus; Z80.9 Family history of malignant neoplasm, unspecified; Z83.438 Family history of other disorder of lipoprotein metabolism and other lipidemia
CPT/HCPCS: 96372; 99283

== ENCOUNTER 2021-05-26 12:16 | Emergency (ER) | payer OTHER, SELFPAY ==
[2021-05-26 12:17] VITALS: BP 138/86; PULSE 116; RESP 20; TEMP 36.8; O2SAT 99; BMI 32.1
--- NOTE | 2021-05-26 12:50 | CT_ITS ---
FINAL REPORT TECHNIQUE: Axial images through the lumbar spine were performed after the administration of IV contrast. Sagittal reconstruction images were performed. This study was performed with techniques to keep radiation doses as low as reasonably achievable, (ALARA). Individualized dose reduction techniques using automated exposure control or adjustment of mA and/or kV according to the patient's size were employed. CLINICAL HISTORY: persistant back pain FINDINGS: CT LUMBAR SPINE W/CONTRAST There is no fracture or malalignment. There is no evidence of disc protrusion. There is no significant canal stenosis or neural foraminal narrowing. There is no paraspinal soft tissue abnormality. There is patchy attenuation of the kidneys that is better visualized on the chest CT consistent with bilateral acute pyelonephritis. IMPRESSION: Findings consistent with bilateral acute pyelonephritis. No acute bony abnormality. Reviewed, Interpreted and Dictated by Gen Cedeño III, MD Transcribed by Juana Sheriff Authenticated by Gen Cedeño III, MD on 05/26/2021 02:38:11 PM [facility]
--- NOTE | 2021-05-26 12:50 | CT_ITS ---
FINAL REPORT TECHNIQUE: Axial images through the thoracic spine were performed after the administration of IV contrast. Sagittal reconstruction images were performed. This study was performed with techniques to keep radiation doses as low as reasonably achievable, (ALARA). Individualized dose reduction techniques using automated exposure control or adjustment of mA and/or kV according to the patient's size were employed. CLINICAL HISTORY: PERSISTANT BACK PAIN FINDINGS: CT THORACIC SPINE WITH CONTRAST No fracture is identified. There is no malalignment. There is no significant central canal stenosis or neural foraminal narrowing. There is no paraspinal soft tissue abnormality. IMPRESSION: No acute process. Reviewed, Interpreted and Dictated by Gen Cedeño III, MD Transcribed by Juana Sheriff Authenticated by Gen Cedeño III, MD on 05/26/2021 02:38:15 PM [facility]
[2021-05-26 12:54] LABS: Microscopic, Urine URINE MICROSCOPIC (MICROSCOPIC)
--- NOTE | 2021-05-26 12:55 | HMH.EDGENADL ---
ED Disposition Clinical Impression: Pyelonephritis Disposition: Home, Self-Care Condition on Discharge: Fair Instructions: DI for Kidney Infection Additional Instructions: Cipro as prescribed. First dose tomorrow morning. Off work for 2 days. Rest and drink plenty of fluids. Tylenol or ibuprofen for pain and fever. Follow-up with Dr. Christie in the office as scheduled. Additional instructions for URINARY TRACT INFECTION: Take antibiotic as prescribed. Contact your physician in 2-3 days for follow up and culture results. Return immediately if you have an uncontrollable fever greater than 102 degrees, severe back or abdominal pain, inability to urinate, or repetitive vomiting. Prescriptions: Ciprofloxacin HCl [Cipro 500mg Tab] 500 mg PO BID #20 tab Transmission Status: Received by [facility] Referrals: Nolan Christie MD [Primary Care Provider] - - Critical Care Critical Care Time: No Attestation: On 05/26/21, the high probability of a clinically significant, sudden or life threatening deterioration of the following system(s) required my full and direct attention, intervention and personal management. The time I documented below is in addition to time spent performing reported procedures but includes the following listed in this critical care notation. Medical Decision Making - Neri Inquiry Pt receiving controlled substance: No Neri was queried for this patient: Yes Vital Signs: 05/26/21 12:17 05/26/21 14:01 05/26/21 17:15 Temperature 98.2 F 98.7 F Temperature Source Oral Pulse Rate 87 88 Pulse Rate [Right Radial] 116 H Respiratory Rate 20 16 Blood Pressure 100/66 L 115/74 Blood Pressure [Right Arm] 138/86 Blood Pressure Mean 79 Blood Pressure Mean [Right Arm] 103 Blood Pressure Source [Right Arm] Automatic Cuff Blood Pressure Position [Right Arm] Sitting 02 Sat by Pulse Oximetry 99 100 Oxygen Delivery Method Room Air - Lab Data Lab Results 05/26/21 12:39: Serum HCG, Qual Negative 05/26/21 12:39: WBC 11.3 H, RBC 4.41, Hgb 13.9, Hct 41.2, MCV 93.6, MCH 31.4 H, MCHC 33.6, RDW 13.1, Plt Count 309, MPV 8.0, Neut % (Auto) 76.0, Lymph % (Auto) 13.9, Beckham % (Auto) 9.6 H, Eos % (Auto) 0.2, Baso % (Auto) 0.4, Neut # (Auto) 8.6 H, Lymph # (Auto) 1.6, Beckham # (Auto) 1.1 H, Eos # (Auto) 0.0, Baso # (Auto) 0.0 05/26/21 12:39: Sodium 136, Potassium 3.7, Chloride 102, Carbon Dioxide 24, Anion Gap 13.7, BUN 12, Creatinine 0.90, Estimated Creat Clear 116, Estimated GFR 76, Est GFR ( Amer) 92, Glucose 117 H, Calcium 8.8, Total Bilirubin 0.7, AST 21, ALT 20, Alkaline Phosphatase 89, C-Reactive Protein 224.6 H, Total Protein 7.8, Albumin 4.1, Globulin 3.7 H, Albumin/Globulin Ratio 1.1 05/26/21 12:39: ESR 67 H 05/26/21 12:39: Procalcitonin 0.150 05/26/21 13:20: SARS-CoV-2 (PCR) Not detected, Influenza A Untype (PCR) Not detected, Influenza Type B (PCR) Not detected 05/26/21 13:51: Urine Color Yellow, Urine Appearance Sl cloudy, Urine pH 6.0, Ur Specific Norman 1.015, Urine Protein Trace, Urine Glucose (UA) Negative, Urine Ketones Trace, Urine Blood Trace-i, Urine Nitrate Positive, Urine Bilirubin Negative, Urine Urobilinogen 1.0, Ur Leukocyte Esterase 1+ A, Urine WBC 20-50, Ur Squamous Epith Cells 10-20, Urine Bacteria 2+, Urine Mucus Trace 05/26/21 14:20: Lactate 0.6 L Result diagrams: 05/26/21 12:39 05/26/21 12:39 Orders (Tests/Meds): ED MEDICATIONS Discontinued Medications Generic Name Dose Route Start Last Admin Trade Name Freq PRN Reason Stop Dose Admin Levofloxacin/Dextrose 750 mg in 150 mls @ 100 mls/hr 05/26/21 15:45 05/26/21 15:44 Levofloxacin 750mg/150ml Premix IV 06/09/21 15:44 100 mls/hr Q24H [place] Administration Iopamidol 100 ml 05/26/21 13:54 05/26/21 13:30 Iopamidol-370 (76%);100ml Bottle IV 05/26/21 13:55 100 ml ONCE ONE Administration Iopamidol 70 ml 05/26/21 13:54 05/26/21 13:45 Iopamidol-370 (76%);100ml Bottle IV 0
--- NOTE | 2021-05-26 12:59 | XR_ITS ---
FINAL REPORT CLINICAL HISTORY: pain COMPARISON: March 13, 2020 FINDINGS: Two views of the chest were obtained. The heart size and pulmonary vascularity are within normal limits. The mediastinum is normal. No acute pulmonary abnormality is identified. There is no pneumothorax. The bony thorax is intact. IMPRESSION: No active cardiopulmonary disease. Reviewed, Interpreted and Dictated by Gen Cedeño III, MD Transcribed by Carol Ann De La O Authenticated by Gen Cedeño III, MD on 05/26/2021 02:20:16 PM [facility]
[2021-05-26 13:05] LABS: Basophils % 0.4 % (0.1-2.0); Eosinophils % 0.2 % (0.1-12.0); Hematocrit 41.2 % (37.0-47.0); Hemoglobin 13.9 g/dL (12.2-16.2); Lymphocytes # 1.6 K/mm3 (0.7-4.5); Lymphocytes % 13.9 % (10-50); Mean Corpuscular HGB Conc 33.6 g/dL (31.8-35.4); Mean Corpuscular Hemoglobin 31.4 pg (27.0-31.2); Mean Corpuscular Volume 93.6 fl (81-99); Monocytes # 1.1 K/mm3 (0.1-1.0); Monocytes % 9.6 % (1.7-9.3); Neutrophils # 8.6 K/mm3 (1.8-7.8); Platelet Count 309 K/mm3 (142-424); Red Blood Count 4.41 M/mm3 (4.20-5.40); Red Cell Distribution Width 13.1 % (11.5-17.5); White Blood Count 11.3 K/mm3 (4.8-10.8)
[2021-05-26 13:06] LABS: HCG Qualitative, Serum Negative (Negative)
[2021-05-26 13:10] LABS: Alanine Aminotransferase 20 U/L (12-78); Albumin Level 4.1 g/dl (3.5-5.0); Albumin/Globulin Ratio 1.1 (1.1-1.8); Alkaline Phosphatase 89 U/L (38-126); Anion Gap 13.7 mEq/L (5-15); Aspartate Amino Transferase 21 U/L (14-36); Bilirubin,Total 0.7 mg/dl (0.2-1.3); Blood Urea Nitrogen 12 mg/dl (7-17); Calcium 8.8 mg/dl (8.4-10.2); Carbon Dioxide 24 mmol/L (22.0-30.0); Chloride 102 mmol/L (98-107); Creatinine Clearance Estimated 116 mL/min (50-200); Estimated Glomerular Filt Rate 76 ml/min (>60); GFR (African American) 92 ML/MIN (>60); Globulin 3.7 g/dL (1.3-3.2); Glucose 117 mg/dl (74-100); Potassium 3.7 mmoL/L (3.5-5.1); Sodium 136 mmol/L (136-145); Total Protein,Serum 7.8 g/dl (6.3-8.2)
[2021-05-26 13:15] LABS: C-Reactive Protein 224.6 mg/L (0-4)
--- NOTE | 2021-05-26 13:21 | PC.NURSE ---
pt to rad.
--- NOTE | 2021-05-26 13:22 | CT_ITS ---
FINAL REPORT TECHNIQUE: Then section axial CT images of the chest were obtained with contrast. Three-D reformatted images were also obtained.This study was performed with techniques to keep radiation doses as low as reasonably achievable (ALARA). Individualized dose reduction techniques using automated exposure control or adjustment of mA and/or kV according to the patient''s size were employed. CLINICAL HISTORY: chest pain with breathing COMPARISON: 11/28/2018 FINDINGS: There is no evidence of pulmonary embolism. There is no evidence of thoracic aortic aneurysm or dissection. There is no evidence of mediastinal or hilar mass or adenopathy. There is no evidence of pulmonary mass or suspicious nodule. No localized inflammatory process is seen within the lungs. Limited images of the upper abdomen demonstrate multifocal wedge-shaped areas of low attenuation in both kidneys, left greater than right, consistent with bilateral acute pyelonephritis. IMPRESSION: No evidence of pulmonary embolism. Bilateral acute pyelonephritis. Reviewed, Interpreted and Dictated by Gen Cedeño III, MD Transcribed by Carol Ann De La O Authenticated by Gen Cedeño III, MD on 05/26/2021 02:20:[address] [facility]
[2021-05-26 13:25] LABS: Coronavirus 19, PCR Not Detected (NotDetected); Influenza A, PCR Not Detected (NotDetected); Influenza B, PCR Not Detected (NotDetected)
--- NOTE | 2021-05-26 13:31 | PC.NURSE ---
RACHEL MARION spoke with rad staff at this time r/t CTs order clarification and contrast amount for pt, RACHEL MARION stated to rad staff okay to do all CTs with contrast
[2021-05-26 13:38] LABS: Erythrocyte Sedimentation Rate 67 mm/hr (0-20)
[2021-05-26 14:01] VITALS: BP 100/66; PULSE 87; O2SAT 100
[2021-05-26 14:11] LABS: Appearance,Urine SL CLOUDY (Clear); Bilirubin,Urine Negative (Negative); Blood, Urine TRACE-I (Negative); Color,Urine YELLOW (Yellow); Glucose,Urine (UA) Negative (Negative); Ketones,Urine TRACE (Negative); Leukocyte Esterase,Urine 1+ (Negative); Nitrate,Urine POSITIVE (Negative); Protein,Urine TRACE (Negative); Specific Gravity, Urine 1.015 (1.005-1.030)
[2021-05-26 14:21] LABS: Bacteria,Urine 2+ /lpf; Mucus,Urine Trace /lpf; WBC,Urine 20-50 #/hpf (0-3)
[2021-05-26 14:49] LABS: Lactic Acid 0.6 mmol/L (0.7-2.1)
--- NOTE | 2021-05-26 15:30 | PC.NURSE ---
Spoke with kylah from [facility] she stated that CT scans had been read but weren't crossing over. She will be printing them out and bringing them to us.
[2021-05-26 17:15] VITALS: BP 115/74; PULSE 88; RESP 16; TEMP 37.1; O2SAT 99
== END 2021-05-26 17:18 | disposition home or self-care (01) ==
PROVIDERS: Emergency Provider Emergency Medicine; PCP Internal Medicine Adolescent Medicine
DX: N10 Acute pyelonephritis (principal)
CPT/HCPCS: 71046; 71275; 72129; 72132; 80053; 81001; 83605; 84145; 84703; 85025; 85651; 86140; 87040; 87086; 87088; 87186; 96365; 96367; 96375; 99284; C9803; J1956; J2405; Q9967; U0003; U0005

== ENCOUNTER → 2021-06-02 12:33 | Outpatient (CLI) | payer OTHER, SELFPAY ==
[2021-06-02 12:51] LABS: Microscopic, Urine URINE MICROSCOPIC (MICROSCOPIC)
[2021-06-02 13:18] LABS: Basophils % 0.6 % (0.1-2.0); Eosinophils # 0.1 K/mm3 (0.0-0.4); Eosinophils % 1.1 % (0.1-12.0); Hematocrit 42.3 % (37.0-47.0); Hemoglobin 13.8 g/dL (12.2-16.2); Lymphocytes # 1.5 K/mm3 (0.7-4.5); Lymphocytes % 25.2 % (10-50); Mean Corpuscular HGB Conc 32.7 g/dL (31.8-35.4); Mean Corpuscular Hemoglobin 31.1 pg (27.0-31.2); Mean Corpuscular Volume 95.3 fl (81-99); Mean Platelet Volume 7.3 fl (7.4-10.4); Monocytes # 0.3 K/mm3 (0.1-1.0); Monocytes % 4.2 % (1.7-9.3); Neutrophils # 4.1 K/mm3 (1.8-7.8); Neutrophils % 68.9 % (37.0-80.0); Platelet Count 532 K/mm3 (142-424); Red Blood Count 4.44 M/mm3 (4.20-5.40); Red Cell Distribution Width 13.2 % (11.5-17.5); White Blood Count 5.9 K/mm3 (4.8-10.8)
[2021-06-02 14:21] LABS: Alanine Aminotransferase 26 U/L (12-78); Albumin/Globulin Ratio 1.3 (1.1-1.8); Alkaline Phosphatase 62 U/L (38-126); Anion Gap 11.5 mEq/L (5-15); Aspartate Amino Transferase 26 U/L (14-36); Bilirubin,Total 0.2 mg/dl (0.2-1.3); Blood Urea Nitrogen 8 mg/dl (7-17); Carbon Dioxide 26 mmol/L (22.0-30.0); Chloride 104 mmol/L (98-107); Chol/HDL Ratio 4.7 (1-3.5); Cholesterol 236 mg/dl (140-200); Estimated Glomerular Filt Rate 102 ml/min (>60); GFR (African American) 123 ML/MIN (>60); Glucose 92 mg/dl (74-100); HDL Cholesterol 50 mg/dl (40-60); Potassium 4.5 mmoL/L (3.5-5.1); Sodium 137 mmol/L (136-145); Triglycerides 190 mg/dl (30-150); VLDL Cholesterol 38 mg/dL (0-40)
[2021-06-02 14:30] LABS: Appearance,Urine CLEAR (Clear); Bilirubin,Urine Negative (Negative); Blood, Urine Negative (Negative); Color,Urine YELLOW (Yellow); Glucose,Urine (UA) Negative (Negative); Ketones,Urine Negative (Negative); Leukocyte Esterase,Urine Negative (Negative); Nitrate,Urine Negative (Negative); Protein,Urine Negative (Negative); Urobilinogen,Urine 0.2 EU/dl (0.2)
[2021-06-02 14:33] LABS: Direct LDL Cholesterol 141.26 mg/dL (100-129)
[2021-06-02 14:39] LABS: 25-OH Vitamin D, Total 22.2 ng/mL (30-100)
[2021-06-02 14:45] LABS: Squamous Epithelial Cell,Urine Occasional #/hpf (0-5)
[2021-06-02 15:29] LABS: Vitamin B12 437 pg/mL (239-931)
[2021-06-02 15:38] LABS: Folate 4.44 ng/mL
[2021-06-03 11:41] LABS: HIV Screen 4th Generation wRfx Non Reactive (Non Reactive); Hep A Ab, IgM Negative (Negative); Hepatitis B Core Antibody IgM Negative (Negative); Hepatitis B Surface Antigen Negative (Negative); Hepatitis C Antibody 0.1 s/co ratio (0.0-0.9)
[2021-06-03 14:17] LABS: Antiparietal Cell Antibody 2.2 Units (0.0-20.0)
== END ==
PROVIDERS: PCP Internal Medicine Adolescent Medicine; Visit Provider Internal Medicine Adolescent Medicine
DX: Z00.00 Encounter for general adult medical examination without abnormal findings (principal); E53.8 Deficiency of other specified B group vitamins; E55.9 Vitamin D deficiency, unspecified; N30.00 Acute cystitis without hematuria
CPT/HCPCS: 36415; 80053; 80061; 80074; 81001; 82306; 82607; 82746; 83516; 85025; 86340; 86703; G0432

== ENCOUNTER 2021-09-06 09:47 | Emergency (ER) | payer OTHER, SELFPAY ==
[2021-09-06 10:27] VITALS: BP 125/65; PULSE 106; RESP 17; TEMP 36.7; O2SAT 96; BMI 30.2
--- NOTE | 2021-09-06 11:02 | HMH.EDUTC ---
[facility] [place] Clinical Impression: Abscess or cellulitis of shoulder Disposition: Home, Self-Care Condition on Discharge: Good Instructions: Trimethoprim/Sulfamethoxazole (Alternative Therapy), Cellulitis, DI for Skin Abscess Additional Instructions: *Start antibiotic(s) immediately and be sure to take as ordered for the FULL length of time although you may be feeling better or start to see improvement in the next 24-48 hours *Monitor closely. Outlined redness so that you can monitor easier. Follow up immediately for new or worsening symptoms including but not limited to redness, swelling, streaking from site fever or chills. *Warm compress with warm water and epson salt 15 minutes 3-4 times day *Never squeeze or pop these on your own. Seek immediate medical attention next time this occurs *Monitor Temp. Tylenol every 4 hours as needed and ibuprofen every 6 hours as needed (as long as your primary care doctor has told you that it is ok to take both. For fever, aches, pain. ER if no less that 101 despite Tylenol and ibuprofen Follow up with your family doctor/primary care physician in the next 48-72 hours if no improvement Make sure to follow up to see what your wound culture showed to make sure that you are on the right antibiotic Prescriptions: Sulfamethoxazole/Trimethoprim [Bactrim DS tablet] 1 each PO BID 10 Days #20 tab Transmission Status: Received by [facility] Mupirocin Calcium [Mupirocin 2% Cream 15gm] 1 applicatio TP TID 10 Days #15 gm Transmission Status: Received by [facility] Referrals: Nolan Christie MD [Primary Care Provider] - As needed Time of Disposition: 11:19 Medical Decision Making - Neri Inquiry Pt receiving controlled substance: No Neri was queried for this patient: No Vital Signs: 09/06/21 10:27 09/06/21 11:25 Temperature 98.1 F 98.1 F Temperature Source Oral Pulse Rate 106 H Pulse Rate [Left] 106 H Respiratory Rate 17 17 Blood Pressure 125/65 Blood Pressure [Right Arm] 125/65 Blood Pressure Mean [Right Arm] 85 02 Sat by Pulse Oximetry 96 - Lab Data Lab Results 09/06/21 11:17: Tst Clinic Negative Orders (Tests/Meds): ORDERS Category Date Time Status Wound Culture and Gram Stain Stat Micro 09/06/21 11:11 Received [facility] - General Stated complaint: shoulder pain Time Seen by Provider: 09/06/21 11:02 Description of Symptoms (Recalled from Triage Doc. by RN): patient comes in with complaints of spider bite on left shoulder HEENT Symptoms (Recalled from RN notes): No Resp Symptoms (Recalled from RN notes): No Skin Symptoms (Recalled from RN notes): Yes MS Symptoms (Recalled from RN notes): No Functional Status (Recalled from RN notes): n/a - History of Present Illness Provider Complaint: Patient states that she thinks she has a spider bite on her left shoulder area States that she has a raised area there that looks like it is ready to bust states that area is sore and red - Related Data Home Medications Medication Instructions Recorded Confirmed vitamin [id number] B1 1,000 100 ml IM MONTHLY 11/28/18 05/11/21 mcg-100 mg/mL injection solution Previous Rx's Medication Instructions Recorded ivabradine 5 mg tablet 2.5 mg PO BID #60 tab 10/15/20 norgestimate 0.25 mg-ethinyl 1 tab PO DAILY #28 tab 03/01/21 estradiol 35 mcg tablet Ketorolac Tromethamine [Toradol 10 mg PO Q8HP PRN #10 tab MDD 05/24/21 10mg tablet] 40mg/day Lidocaine [Lidocaine 5% patch] 1 patch TP DAILYP PRN #15 patch 05/24/21 methocarbamoL [Methocarbamol 500mg 500 mg PO BID 30 Days #60 tab 05/24/21 Tablet] Ciprofloxacin HCl [Cipro 500mg 500 mg PO BID #20 tab 05/26/21 Tab] hydroxyzine pamoate 25 mg capsule 25 mg PO .COMPLEX PRN #60 cap 06/15/21 Mupirocin Calcium [Mupirocin 2% 1 applicatio TP TID 10 Days #15 gm 09/06/21 Cream 15gm] Sulfamethoxazole/Trimethoprim 1 each PO BID 10 Days #20 tab 09/06/21 [Bactrim DS tablet] Al
[2021-09-06 11:18] LABS: UTC Pregnancy Test, Urine Negative (Negative)
[2021-09-06 11:25] VITALS: BP 125/65; PULSE 106; RESP 17; TEMP 36.7
== END 2021-09-06 11:26 | disposition home or self-care (01) ==
PROVIDERS: Emergency Provider Nurse Practitioner; PCP Internal Medicine Adolescent Medicine
DX: L03.114 Cellulitis of left upper limb (principal); B95.62 Methicillin resistant Staphylococcus aureus infection as the cause of diseases classified elsewhere; Z16.11 Resistance to penicillins; Z16.39 Resistance to other specified antimicrobial drug
CPT/HCPCS: 81025; 87070; 87077; 87186; 87205; 99212; G0463

== ENCOUNTER 2021-11-19 12:50 | Emergency (ER) | payer OTHER, SELFPAY ==
[2021-11-19] VITALS (8 sets, daily range): BP systolic 133–162; BP diastolic 85–106; PULSE 62–110; RESP 14–20; TEMP 36.6; O2SAT 97–100; BMI 30.2
--- NOTE | 2021-11-19 12:50 | ECG_ITS ---
APPROVED REPORT Exam: Resting ECG HR:109 bpm ECG Measurements Heart Rate 109 AXES CA 138 P 78 QRSd 83 QRS 83 QT 315 T 52 QTc 379 Conclusion SINUS TACHYCARDIA MODERATE ST DEPRESSION [0.05+ mV ST DEPRESSION] ABNORMAL ECG UNCONFIRMED REPORT Electronically signed by : Nolan Christie MD 11/20/2021 06:56:45
--- NOTE | 2021-11-19 12:54 | XR_ITS ---
FINAL REPORT CLINICAL HISTORY: chest pain COMPARISON: May 26, 2021 FINDINGS: The heart size is normal. The mediastinum is normal. There is no focal infiltrate or edema. There are no pleural effusions. There is no pneumothorax. There is no osseous abnormality. IMPRESSION: No acute cardiopulmonary process Reviewed, Interpreted and Dictated by Juan Francisco Pérez MD Transcribed by Jamil Barragan Authenticated and [facility]
--- NOTE | 2021-11-19 13:02 | PC.NURSE ---
Raad @ BS for CXR
--- NOTE | 2021-11-19 13:13 | PC.NURSE ---
Jessica with customer relations checking on pt, no needs at this time.
[2021-11-19 13:14] LABS: Basophils # 0.1 K/mm3 (0-0.2); Basophils % 1.6 % (0.1-2.0); Eosinophils # 0.1 K/mm3 (0.0-0.4); Eosinophils % 1.8 % (0.1-12.0); Hematocrit 45.1 % (37.0-47.0); Hemoglobin 14.7 g/dL (12.2-16.2); Lymphocytes # 1.8 K/mm3 (0.7-4.5); Lymphocytes % 24.7 % (10-50); Mean Corpuscular HGB Conc 32.7 g/dL (31.8-35.4); Mean Corpuscular Volume 94.8 fl (81-99); Mean Platelet Volume 7.5 fl (7.4-10.4); Monocytes # 0.4 K/mm3 (0.1-1.0); Monocytes % 4.8 % (1.7-9.3); Neutrophils # 4.9 K/mm3 (1.8-7.8); Neutrophils % 67.1 % (37.0-80.0); Platelet Count 330 K/mm3 (142-424); Red Blood Count 4.75 M/mm3 (4.20-5.40); Red Cell Distribution Width 13.3 % (11.5-17.5); White Blood Count 7.3 K/mm3 (4.8-10.8)
[2021-11-19 13:19] LABS: Chloride 102 mmol/L (98-107); Sodium 140 mmol/L (136-145)
[2021-11-19 13:20] LABS: Potassium 3.9 mmoL/L (3.5-5.1)
[2021-11-19 13:22] LABS: Alanine Aminotransferase 20 U/L (12-78); Albumin Level 4.7 g/dl (3.5-5.0); Albumin/Globulin Ratio 1.5 (1.1-1.8); Alkaline Phosphatase 84 U/L (38-126); Anion Gap 15.9 mEq/L (5-15); Aspartate Amino Transferase 31 U/L (14-36); Blood Urea Nitrogen 12 mg/dl (7-17); Carbon Dioxide 26 mmol/L (22.0-30.0); Creatinine Clearance Estimated 140 mL/min (50-200); Estimated Glomerular Filt Rate 101 ml/min (>60); GFR (African American) 122 ML/MIN (>60); Globulin 3.2 g/dL (1.3-3.2); HCG Qualitative, Serum Negative (Negative); Total Protein,Serum 7.9 g/dl (6.3-8.2)
[2021-11-19 13:23] LABS: Bilirubin,Total < 0.1 mg/dl (0.2-1.3); Calcium 9.1 mg/dl (8.4-10.2); Glucose 99 mg/dl (74-100)
--- NOTE | 2021-11-19 13:29 | HMH.EDCP ---
Discharge Plan Disposition Patient Disposition: Home, Self-Care Condition: Good Chief Complaint: Chest Pain Prescriptions Prescriptions: No Action Corlanor 5 mg tablet 5 mg PO BID Qty: 60 2RF Rx Instructions: must administer with a meal/food norgestimate-ethinyl estradiol [Sprintec (28)] 0.25-35 mg-mcg tablet 1 tab PO DAILY Qty: 28 11RF Referrals Follow up/Referrals: Provider,MD Eric [Referring] - See instructions Nolan Christie MD [Primary Care Provider] - See instructions Clinical Impressions Clinical Impression: Chest pain Instructions Patient Instructions: DI for Atypical Chest Pain Discharge ED Provider: Christoph Wilcox Chest Pain HPI General Chief Complaint: Chest Pain Stated Complaint: chest pain Time Seen by Provider: 11/19/21 13:30 Mode of Arrival: Ambulatory Source of Information: Patient Limitations: No Limitations Description of Symptoms (Recalled from ER Triage Doc. by RN): to ed per pvt car with c/o chest pain radiating to lt breast, sob x 2 hrs. 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 pt denies nausea, vomiting. History of Present Illness HPI narrative: This is a 26-year-old female presented to the emergency department with some chest discomfort. Patient states that it started about 2 hours ago. She started having some substernal chest pain radiating to her left breast. Patient sees cardiology due to this issue frequently. She is also had some mild cough recently. Nonproductive in nature. Feels like coughing makes the discomfort worse. She is not having any palpitations. She denies any headache or change in vision. No focal weakness. No fevers or chills. No abdominal pain or vomiting. Related Data Previous Rx's Medication Instructions Recorded norgestimate 0.25 mg-ethinyl 1 tab PO DAILY #28 tabs 03/01/21 estradiol 35 mcg tablet (Sprintec (28)) ivabradine 5 mg tablet (Corlanor) 5 mg PO BID #60 tabs 11/09/21 Allergies Allergy/AdvReac Type Severity Reaction Status Date / Time cephalexin [From KEFLEX] Allergy Mild Verified 11/09/21 14:50 PFSH PFS Medical History Chest pain Dyspnea Palpitations Tachycardia Social History Smoking Status: Current every day smoker alcohol intake: never substance use type: denies use current occupational status: employed Travel in the last 8 weeks: Inside the [place] number of children: 0 ROS Obtained: Yes All systems reviewed & no additional complaints except as documented Constitutional Constitutional: Denies fever(s) and Denies headache(s) ENT Ears, Nose, Mouth, and Throat: Denies headache(s) Cardiovascular Cardiovascular: Reports chest pain Respiratory Respiratory: Reports cough Gastrointestinal Gastrointestingal: Denies vomiting Musculoskeletal Musculoskeletal: Denies joint swelling Integumentary/Breasts Skin/Breast: Denies rash Neurologic Neurologic: Denies headache(s) Physical Exam General General appearance: alert and in no apparent distress Eye Eye exam: Present normal appearance, PERRL and EOMI Chest Chest inspection: Present normal inspection and symmetric chest wall rise Respiratory Respiratory exam: Present normal lung sounds bilaterally; Absent respiratory distress Cardiovascular Cardiovascular exam: Present regular rate and normal rhythm Abdominal Exam Abdominal exam: Present soft; Absent distention, tenderness, guarding, rebound, rigidity or mass Extremities Exam Extremities exam: Present normal inspection and full ROM; Absent tenderness Neurological Exam Neurological exam: Present alert, oriented X3, CN II-XII intact and normal gait Skin Skin exam: Present warm; Absent rash Medical Decision Making Medical Records Medical records reviewed: Yes I reviewed the patient's medical records. Neri Inquiry Pt receiving controlled substance: N
[2021-11-19 13:37] LABS: Troponin I < 0.01 ng/ml (0.00-0.034)
--- NOTE | 2021-11-19 14:00 | CT_ITS ---
FINAL REPORT TECHNIQUE: Thin section axial CT images were performed from the lung apices to the upper abdomen after the administration of IV contrast. 3-D and MIP reconstructions performed. This study was performed with techniques to keep radiation doses as low as reasonably achievable (ALARA). Individualized dose reduction techniques using automated exposure control or adjustment of mA and/or kV according to the patient''s size were employed. CLINICAL HISTORY: chest pain, dyspnea FINDINGS: There is no evidence for pulmonary embolism. The thoracic aorta is patent without evidence of dissection. There is no axillary adenopathy. There is no mediastinal or hilar adenopathy. The heart size is normal. There is no pleural or pericardial effusion. There are mild ground-glass opacities in both lungs consistent with pneumonitis or mild edema. There are no localized airspace infiltrates. Limited images of the upper abdomen are unremarkable. IMPRESSION: No evidence of pulmonary embolism or aortic dissection. Ground-glass opacities in both lungs consistent with pneumonitis or mild edema. Reviewed, Interpreted and Dictated by Juan Francisco Pérez MD Transcribed by Jessica Childress Authenticated and [facility]
--- NOTE | 2021-11-19 14:57 | PC.NURSE ---
pt updated on plan of care
== END 2021-11-19 16:15 | disposition home or self-care (01) ==
PROVIDERS: Emergency Provider Emergency Medicine; PCP Internal Medicine Adolescent Medicine
DX: R07.9 Chest pain, unspecified (principal); Z79.899 Other long term (current) drug therapy; Z88.1 Allergy status to other antibiotic agents; Z72.0 Tobacco use; I10 Essential (primary) hypertension
CPT/HCPCS: 71045; 71275; 80053; 84484; 84703; 85025; 93005; 96374; 99285; Q9967

== ENCOUNTER → 2021-11-26 19:31 | Outpatient (CLI) | payer OTHER, SELFPAY ==
[2021-11-26 20:39] LABS: NT Pro Brain Natriuretic Pep. 26.6 pg/mL (0-125)
== END ==
PROVIDERS: PCP Internal Medicine Adolescent Medicine; Visit Provider Internal Medicine Cardiovascular Disease
DX: R06.09 Other forms of dyspnea (principal); I50.9 Heart failure, unspecified; I10 Essential (primary) hypertension; R07.81 Pleurodynia; Z20.822 Contact with and (suspected) exposure to COVID-19
CPT/HCPCS: 83880; C9803; U0003; U0005

== ENCOUNTER → 2021-12-02 13:59 | Outpatient (CLI) | payer OTHER, SELFPAY ==
--- NOTE | 2021-12-02 14:03 | CA_ITS ---
APPROVED REPORT EXAM: Comprehensive 2D, Doppler, and color-flow Echocardiogram Rate Supervisor: Claudia Montanez RVT Ht: 5 ft 1 in Wt: 178lbs BSA: 1.80 BP: 137/90 mmHg Indications: SOA,SMOKER,HTM,TACHYCARDIA 2D Dimensions LVOT 2.00 cm (M/F) 1.5-2.5 LA Volume 20.20 mL LA Volume Index 11.28 mL/m2 (M/F) 16-34 M-Mode Dimensions RVDd 3.43 cm (0.9-2.6) LA Diam 3.68 cm (1.9-4.0) LVDd 4.22 cm (3.5-5.7) Ao Diam 2.76 cm (2.0-3.7) LVDs 2.86 cm (3.5-5.7) IVSd 0.82 cm (0.6-1.1) PWd 0.82 cm (0.6-1.1) EF (Teich) 60.90% FS 32.20% EDV (Teich) 79.50 mL TAPSE 1.94 (<1.7) ESV (Teich) 31.10 mL LV Diastology E Decel Time 150.00 (160-240 msec) E/A Ratio 1.5 MED E' 8.90 (< 7 cm/sec) E'/MED E' Ratio 8.44 (>14) LAT E' 15.70 (<10 cm/sec) E/LAT E' Ratio 4.78 (>14) Aortic Valve AO Peak GR. 5.10 mmHg Mitral Valve MV E Max Karl. 75.00 (40-130 cm/s) MV A Velocity 51.00 (40-130 cm/s) E/A Ratio 1.46 MV Decel. Time 150.00 (160-240 ms) MV PHT 44.00 ms Pulmonary Valve PV Peak Velocity 81.00 (50-150 cm/s) Tricuspid Valve TR P. Velocity 219.00 cm/s RAP Estimate 10.00 mmHg RVSP 29.10 mmHg Left Ventricle Atrium is normal size, left ventricle is normal size, there is no left ventricular hypertrophy, estimated ejection fraction 55% with no regional wall motion abnormality, diastolic parameters are within normal range. Right Ventricle Right atrium and right ventricle are normal size and contractility. Aortic Valve Aortic valve is grossly normal there is no aortic stenosis aortic insufficiency. Mitral Valve Mitral valve grossly normal, there is no mitral stenosis or mitral regurgitation. Tricuspid Valve Cuspid valve is grossly normal, there is no significant tricuspid regurgitation. Pulmonic Valve Pulmonic valve is poorly visualized. Great Vessels Aortic root is normal size. Inferior vena cava normal size with normal inspiratory collapse. Pericardium No significant pericardial effusion noted. Conclusion 1. Normal left ventricular size preserved left ventricular systolic function, estimated ejection fraction 55% with no regional wall motion abnormality, diastolic parameters are within normal range. 2. No significant pericardial effusion noted. 3. Inferior vena cava is normal size with normal inspiratory collapse. Electronically signed by : Daiv Serrano MD 12/03/2021 14:37:35
== END ==
PROVIDERS: PCP Internal Medicine Adolescent Medicine; Visit Provider Internal Medicine Cardiovascular Disease
DX: R06.09 Other forms of dyspnea (principal); R07.81 Pleurodynia; I10 Essential (primary) hypertension
CPT/HCPCS: 93306

== ENCOUNTER → 2022-01-18 19:59 | Outpatient (CLI) | payer OTHER, SELFPAY ==
[2022-01-18 20:48] LABS: Chloride 101 mmol/L (98-107); Sodium 136 mmol/L (136-145)
[2022-01-18 20:49] LABS: Potassium 4.1 mmoL/L (3.5-5.1)
[2022-01-18 20:51] LABS: Alanine Aminotransferase 23 U/L (12-78); Alkaline Phosphatase 89 U/L (38-126); Aspartate Amino Transferase 27 U/L (14-36); Bilirubin,Total 0.2 mg/dl (0.2-1.3); Blood Urea Nitrogen 14 mg/dl (7-17); Estimated Glomerular Filt Rate 87 ml/min (>60); GFR (African American) 105 ML/MIN (>60)
[2022-01-18 20:52] LABS: Albumin Level 4.8 g/dl (3.5-5.0); Albumin/Globulin Ratio 1.4 (1.1-1.8); Anion Gap 12.1 mEq/L (5-15); Calcium 9.7 mg/dl (8.4-10.2); Carbon Dioxide 27 mmol/L (22.0-30.0); Globulin 3.4 g/dL (1.3-3.2); Glucose 89 mg/dl (74-100); Total Protein,Serum 8.2 g/dl (6.3-8.2)
[2022-01-18 20:54] LABS: Basophils # 0.1 K/mm3 (0-0.2); Basophils % 1.6 % (0.1-2.0); Eosinophils # 0.1 K/mm3 (0.0-0.4); Eosinophils % 1.1 % (0.1-12.0); Hematocrit 48.6 % (37.0-47.0); Hemoglobin 15.7 g/dL (12.2-16.2); Lymphocytes # 2.1 K/mm3 (0.7-4.5); Lymphocytes % 29.2 % (10-50); Mean Corpuscular HGB Conc 32.4 g/dL (31.8-35.4); Mean Corpuscular Hemoglobin 29.8 pg (27.0-31.2); Mean Platelet Volume 7.5 fl (7.4-10.4); Monocytes # 0.4 K/mm3 (0.1-1.0); Neutrophils # 4.6 K/mm3 (1.8-7.8); Neutrophils % 63.1 % (37.0-80.0); Platelet Count 348 K/mm3 (142-424); Red Blood Count 5.28 M/mm3 (4.20-5.40); Red Cell Distribution Width 12.8 % (11.5-17.5); White Blood Count 7.3 K/mm3 (4.8-10.8)
[2022-01-18 21:23] LABS: Thyroid Stimulating Hormone 1.79 uIU/mL (0.465-4.68)
[2022-01-20 08:43] LABS: FSH 7.4 mIU/mL (.)
== END ==
PROVIDERS: PCP Internal Medicine Adolescent Medicine; Visit Provider Nurse Practitioner Obstetrics & Gynecology
DX: R53.83 Other fatigue (principal)
CPT/HCPCS: 36415; 80053; 83001; 83002; 84443; 85025

== ENCOUNTER 2022-03-14 13:10 | Emergency (ER) | payer OTHER, SELFPAY ==
[2022-03-14 13:15] VITALS: BP 140/92; PULSE 101; RESP 18; TEMP 36.7; O2SAT 98; BMI 32.4
--- NOTE | 2022-03-14 14:10 | EXP.UTC ---
Discharge Plan Disposition Patient Disposition: Home, Self-Care Condition: Good Prescriptions Prescriptions: New sulfamethoxazole-trimethoprim [Bactrim DS] 800-160 mg tablet 1 tab PO BID Qty: 20 0RF mupirocin 2 % ointment 1 applic topical TID 10 Days Qty: 22 0RF Rx Instructions: apply to areas as directed Referrals Follow up/Referrals: Nolan Christie MD [Primary Care Provider] - See instructions Activity Restrictions/Add. Instructions Additional Instructions/Restrictions: *Start antibiotic(s) immediately and be sure to take as ordered for the FULL length of time although you may be feeling better or start to see improvement in the next 24-48 hours *Monitor closely. Outlined redness so that you can monitor easier. Follow up immediately for new or worsening symptoms including but not limited to redness, swelling, streaking from site fever or chills. *Warm compress 15 minutes 3-4 times day *Never squeeze or pop these on your own. Seek immediate medical attention next time this occurs *Monitor Temp. Tylenol every 4 hours as needed and ibuprofen every 6 hours as needed (as long as your primary care doctor has told you that it is ok to take both. For fever, aches, pain. ER if no less that 101 despite Tylenol and ibuprofen ?Follow up with your family doctor/primary care physician in the next 48-72 hours if no improvement Clinical Impressions Clinical Impression: Cellulitis Instructions Patient Instructions: Cellulitis, Trimethoprim/Sulfamethoxazole (Alternative Therapy), Mupirocin Discharge ED Provider: Chikis Mattson [facility] General Stated complaint: Welps all over body Mode of Arrival: Ambulatory Source of Information: Patient Limitations: No Limitations Time Seen by Provider: 03/14/22 14:10 Description of Symptoms (Recalled from Triage Doc. by RN): PATIENT C/O POSSIBLE SPIDER BITES HEENT Symptoms (Recalled from RN notes): No Resp Symptoms (Recalled from RN notes): No Skin Symptoms (Recalled from RN notes): Yes MS Symptoms (Recalled from RN notes): No Functional Status (Recalled from RN notes): WNL History of Present Illness Provider Complaint: Patient state that she has several bites on her body States that she has one on her right hand, left leg and abdomen State that she thinks it may be spider bites so she came in to get it checked Related Data Previous Rx's Medication Instructions Recorded mupirocin 2 % topical ointment 1 applic topical TID 10 days #22 03/14/22 grams sulfamethoxazole 800 1 tab PO BID #20 tabs 03/14/22 mg-trimethoprim 160 mg tablet (Bactrim DS) Allergies Allergy/AdvReac Type Severity Reaction Status Date / Time cephalexin [From KEFLEX] Allergy Mild Verified 02/24/22 15:13 Worker's Comp Is this a Worker's Comp case?: No [facility] Disclaimer: The information contained in this section may have been updated after the patient was seen, as this information can be updated by other users. Medical History (Updated 03/14/22 @ 14:28 by Chikis Mattson APRN) Chest pain Dyspnea Generalized anxiety disorder Kidney stone Major depressive disorder Palpitations Tachycardia Surgical History (Updated 03/14/22 @ 13:30 by Poly Emery RN) H/O left wrist surgery Social History (Updated 03/14/22 @ 13:30 by Poly Emery RN) Smoking Status: Never smoker alcohol intake: never substance use type: denies use current occupational status: employed Travel in the last 8 weeks: Inside the [place] number of children: 0 ROS Obtained: Yes All systems reviewed & no additional complaints except as documented and Yes Systems reviewed as appropriate & no additional complaints except as documented Constitutional Constitutional: Reports system reviewed and no additional complaints, except as documented and Reports as per HPI ENT Ears, Nose, Mouth, and Throat: Reports system reviewed and no additional complaints, except as documented and Reports as per H
[2022-03-14 14:30] VITALS: BP 140/92; PULSE 101; RESP 18; TEMP 36.7; O2SAT 98
== END 2022-03-14 14:34 | disposition home or self-care (01) ==
PROVIDERS: Emergency Provider Nurse Practitioner; PCP Internal Medicine Adolescent Medicine
DX: L03.90 Cellulitis, unspecified (principal); Z86.14 Personal history of Methicillin resistant Staphylococcus aureus infection
CPT/HCPCS: 99212; G0463

== ENCOUNTER 2022-07-08 09:30 | Emergency (ER) | payer OTHER, SELFPAY ==
[2022-07-08 09:35] VITALS: BP 132/87; PULSE 74; RESP 20; TEMP 36.8; O2SAT 99; BMI 30.6
--- NOTE | 2022-07-08 09:42 | EXP.UTC ---
Discharge Plan Disposition Patient Disposition: Home, Self-Care Condition: Good Prescriptions Prescriptions: New methylprednisolone 4 mg Tablets,Dose Pack 4 mg PO DIRECTED Qty: 21 0RF iyrangibwkzyxlq-fjksjakyr-ZB [Bromfed DM] 2-30-10 mg/5 mL Syrup 5 ml PO Q6H PRN (Reason: Cough) Qty: 240 0RF amoxicillin-pot clavulanate 875-125 mg Tablet 1 tab PO Q12H Qty: 20 0RF Referrals Follow up/Referrals: Nolan Christie MD [Primary Care Provider] - See instructions Activity Restrictions/Add. Instructions Additional Instructions/Restrictions: Drink plenty of fluids. Take tylenol or ibuprofen for pain or fever. Take the medications as directed. Follow up with your regular doctor. GO TO THE ER FOR ANY WORSENING SYMPTOMS Don't start the oral steroids until tomorrow, since you had the shot here today. Clinical Impressions Clinical Impression: Acute bronchitis Stand Alone Forms Stand Alone Forms: Work/School Release Instructions Patient Instructions: Acute Bronchitis, DI for Acute Bronchitis Discharge ED Provider: Rick Chaudhary [facility] General Stated complaint: SOA, lost voice Time Seen by Provider: 07/08/22 09:42 History of Present Illness Provider Complaint: She states that for the past 1 week she has had chest congestion, sob with exertion, productive cough with yellowish sputum, and malaise. She does have a history of getting bronchitis and she feels like that is what she has now. Related Data Previous Rx's Medication Instructions Recorded amoxicillin 875 mg-potassium 1 tab PO Q12H #20 tabs 07/08/22 clavulanate 125 mg tablet pqnjiqaxwyjzfqh-nobqsurbbacnziz-UW 5 ml PO Q6H PRN Cough #240 mL 07/08/22 2 mg-30 mg-10 mg/5 mL oral syrup (Bromfed DM) methylprednisolone 4 mg tablets in 4 mg PO DIRECTED #21 tabs 07/08/22 a dose pack Allergies Allergy/AdvReac Type Severity Reaction Status Date / Time cephalexin [From KEFLEX] Allergy Mild Verified 02/24/22 15:13 [facility] Disclaimer: The information contained in this section may have been updated after the patient was seen, as this information can be updated by other users. Medical History Chest pain Dyspnea Generalized anxiety disorder Kidney stone Major depressive disorder Palpitations Tachycardia Surgical History H/O left wrist surgery Social History Smoking Status: Never smoker alcohol intake: never substance use type: denies use current occupational status: employed Travel in the last 8 weeks: Inside the [place] number of children: 0 ROS Obtained: Yes All systems reviewed & no additional complaints except as documented Constitutional Constitutional: Reports chills and Reports fever(s) Eyes Eyes: Denies eye discharge ENT Ears, Nose, Mouth, and Throat: Reports as per HPI Cardiovascular Cardiovascular: Denies chest pain and Reports dyspnea on exertion Respiratory Respiratory: Reports shortness of breath, Reports chest congestion, Reports cough, Reports dyspnea on exertion, Denies stridor and Denies wheezing Gastrointestinal Gastrointestingal: Reports nausea; Denies abdominal pain, constipation, cramping, diarrhea or vomiting Musculoskeletal Musculoskeletal: Denies arthralgias Integumentary/Breasts Skin/Breast: Denies rash Neurologic Neurologic: Denies paresthesias Allergic/Immunologic Allergic/Immunologic: Denies wheezing Physical Exam General General appearance: alert and in no apparent distress Head Head exam: atraumatic, normocephalic and normal inspection Eye Eye exam: Present normal appearance, PERRL and EOMI ENT ENT exam: Present normal exam, normal oropharynx, mucous membranes moist, TM's normal bilaterally and normal external ear exam Neck Neck exam: Present normal inspection, full ROM and trachea midline; Absent me
[2022-07-08 09:53] VITALS: BP 132/87; PULSE 74; RESP 20; TEMP 36.8; O2SAT 99
--- NOTE | 2022-07-08 09:53 | XR_ITS ---
FINAL REPORT CLINICAL HISTORY: cough, congestion COMPARISON: 11/19/2021 FINDINGS: There is no evidence of effusion or other pleural disease. The mediastinum has a normal appearance. The cardiac silhouette is unremarkable. IMPRESSION: Unremarkable chest exam. Reviewed, Interpreted and Dictated by Juan Pillai MD Transcribed by Jaycee Fernandes Authenticated and [facility]
== END 2022-07-08 10:45 | disposition home or self-care (01) ==
PROVIDERS: Emergency Provider Nurse Practitioner Family; PCP Internal Medicine Adolescent Medicine
DX: J20.9 Acute bronchitis, unspecified (principal)
CPT/HCPCS: 71046; 96372; 99212; 99214; G0463; J0696

== ENCOUNTER 2023-01-05 08:00 | Emergency (ER) | payer OTHER, SELFPAY ==
[2023-01-05 08:05] VITALS: PULSE 125; RESP 18; TEMP 36.6; O2SAT 99; BMI 31.1
--- NOTE | 2023-01-05 08:15 | XR_ITS ---
FINAL REPORT CLINICAL HISTORY: Left ankle pain, lateral swelling FINDINGS: AP, oblique, and lateral views of the left ankle were obtained. There is no prior exam for comparison. There is no fracture or dislocation. The ankle mortise is intact. There is lateral soft tissue swelling. IMPRESSION: No acute osseous abnormality of the left ankle. Reviewed, Interpreted and Dictated by Christy Roa MD Transcribed by Carol Ann De La O Authenticated and [facility]
--- NOTE | 2023-01-05 08:15 | XR_ITS ---
FINAL REPORT CLINICAL HISTORY: Left foot pain FINDINGS: AP, oblique and lateral views of the left foot were obtained. There is no prior exam for comparison. There is no acute fracture or dislocation. The joint spaces are preserved. Soft tissues are normal. IMPRESSION: No acute osseous abnormality of the left foot. Reviewed, Interpreted and Dictated by Christy Roa MD Transcribed by Carol Ann De La O Authenticated and [facility]
--- NOTE | 2023-01-05 08:32 | EXP.UTC ---
Discharge Plan Disposition Patient Disposition: Home, Self-Care Condition: Good Prescriptions Prescriptions: New ibuprofen [ibuprofen] 600 mg tablet 600 mg PO Q6HP PRN (Reason: Mild Pain) Qty: 30 0RF Referrals Follow up/Referrals: Nolan Christie MD [Primary Care Provider] - See instructions Shannan Moreno DPM [Staff Physician] - See instructions Activity Restrictions/Add. Instructions Additional Instructions/Restrictions: Rest the extremity, Wear the jorge wrap for compression, Elevate the extremity as tolerated while you are resting. Take ibuprofen for pain. I sent in a prescription to your pharmacy. Follow up with Dr. Moreno (podiatry) if you continue to have symptoms. I put in a referral but you need to call her office and schedule an appointment. Follow up with your regular doctor. GO TO THE ER FOR ANY WORSENING SYMPTOMS Clinical Impressions Clinical Impression: Left ankle sprain, Left ankle pain Instructions Patient Instructions: Ankle Sprain, DI for Ankle Sprain Discharge ED Provider: Rick Chaudhary [facility] General Stated complaint: LT ANKLE Mode of Arrival: Ambulatory Source of Information: Patient Limitations: No Limitations Time Seen by Provider: 01/05/23 08:32 Description of Symptoms (Recalled from Triage Doc. by RN): left ankle and foot is swollen for the last two weeks. HEENT Symptoms (Recalled from RN notes): No Resp Symptoms (Recalled from RN notes): No Skin Symptoms (Recalled from RN notes): No MS Symptoms (Recalled from RN notes): Yes Functional Status (Recalled from RN notes): n/a History of Present Illness Provider Complaint: She states that she twisted her left ankle around 2 weeks ago. She continues to have swelling of that ankle. She states that when she bears weight on it it causes pain. Related Data Previous Rx's Medication Instructions Recorded ibuprofen 600 mg tablet 600 mg PO Q6HP PRN Mild Pain #30 01/05/23 tabs Allergies Allergy/AdvReac Type Severity Reaction Status Date / Time cephalexin [From KEFLEX] Allergy Mild Verified 01/05/23 08:19 Worker's Comp Is this a Worker's Comp case?: No [facility] Disclaimer: The information contained in this section may have been updated after the patient was seen, as this information can be updated by other users. Medical History Chest pain Dyspnea Generalized anxiety disorder Kidney stone Major depressive disorder Palpitations Tachycardia Surgical History H/O left wrist surgery Social History Smoking Status: Never smoker alcohol intake: never substance use type: denies use current occupational status: employed Travel in the last 8 weeks: [place] the [place] number of children: 0 ROS Obtained: Yes All systems reviewed & no additional complaints except as documented Constitutional Constitutional: Denies chills and Denies fever(s) Eyes Eyes: Denies eye discharge ENT Ears, Nose, Mouth, and Throat: Denies dizziness, Denies otalgia and Denies sore throat Cardiovascular Cardiovascular: Denies chest pain Respiratory Respiratory: Denies shortness of breath, Denies chest congestion, Denies cough, Denies stridor and Denies wheezing Gastrointestinal Gastrointestingal: Denies nausea or vomiting Musculoskeletal Musculoskeletal: Reports as per HPI Integumentary/Breasts Skin/Breast: Denies rash Neurologic Neurologic: Denies dizziness and Denies paresthesias Allergic/Immunologic Allergic/Immunologic: Denies wheezing Physical Exam General General appearance: alert and in no apparent distress Head Head exam: atraumatic, normocephalic and normal inspection Eye Eye exam: Present normal appearance, PERRL and EOMI ENT ENT exam: Present normal exam, normal oropharynx, mucous membranes moist, TM's normal bilaterally and normal external ear exam Neck
[2023-01-05 09:21] VITALS: BP 158/97; PULSE 125; RESP 18; TEMP 36.6; O2SAT 99
== END 2023-01-05 09:20 | disposition home or self-care (01) ==
PROVIDERS: Emergency Provider Nurse Practitioner Family; PCP Internal Medicine Adolescent Medicine
DX: S93.402A Sprain of unspecified ligament of left ankle, initial encounter (principal); F41.1 Generalized anxiety disorder; F33.9 Major depressive disorder, recurrent, unspecified; X50.1XXA Overexertion from prolonged static or awkward postures, initial encounter
CPT/HCPCS: 73610; 73630; 99212; 99214; G0463

== ENCOUNTER 2023-03-30 08:56 | Outpatient (CLI) | payer OTHER, SELFPAY ==
--- NOTE | 2023-03-30 09:05 | XR_ITS ---
FINAL REPORT CLINICAL HISTORY: right wrist pain shielded COMPARISON: None FINDINGS: RIGHT WRIST THREE VIEW FINDINGS: Three views show no evidence of an acute, displaced fracture or dislocation of the visualized bony architecture. The joint spaces appear normal. IMPRESSION: Unremarkable exam. Reviewed, Interpreted and Dictated by Juan Pillai MD Transcribed by Selene Wiseman Authenticated and [facility]
== END 2023-03-30 23:59 ==
LOC: RAD 08:57
PROVIDERS: PCP Internal Medicine Adolescent Medicine; Visit Provider Orthopaedic Surgery
DX: M25.531 Pain in right wrist (principal)
CPT/HCPCS: 73110

== ENCOUNTER 2023-04-15 10:07 | Outpatient (CLI) | payer OTHER, SELFPAY ==
[2023-04-15 10:20] LABS: Basophils # 0.1 K/mm3 (0-0.2); Basophils % 0.6 % (0.1-2.0); Eosinophils # 0.1 K/mm3 (0.0-0.4); Eosinophils % 0.7 % (0.1-12.0); Hematocrit 46.2 % (37.0-47.0); Hemoglobin 15.5 g/dL (12.2-16.2); Lymphocytes # 2.3 K/mm3 (0.7-4.5); Lymphocytes % 25.4 % (10-50); Mean Corpuscular HGB Conc 33.5 g/dL (31.8-35.4); Mean Corpuscular Hemoglobin 31.4 pg (27.0-31.2); Mean Corpuscular Volume 93.5 fl (81-99); Mean Platelet Volume 7.8 fl (7.4-10.4); Monocytes # 0.5 K/mm3 (0.1-1.0); Monocytes % 5.7 % (1.7-9.3); Neutrophils # 6.1 K/mm3 (1.8-7.8); Neutrophils % 67.7 % (37.0-80.0); Platelet Count 248 K/mm3 (142-424); Red Blood Count 4.94 M/mm3 (4.20-5.40); Red Cell Distribution Width 12.8 % (11.5-17.5); White Blood Count 9.1 K/mm3 (4.8-10.8)
[2023-04-15 10:45] LABS: Chloride 105 mmol/L (98-107); Potassium 3.9 mmoL/L (3.5-5.1); Sodium 138 mmol/L (136-145)
[2023-04-15 10:48] LABS: Alanine Aminotransferase 22 U/L (12-78); Albumin Level 4.3 g/dl (3.5-5.0); Albumin/Globulin Ratio 1.6 (1.1-1.8); Alkaline Phosphatase 68 U/L (38-126); Anion Gap 6.9 mEq/L (5-15); Aspartate Amino Transferase 23 U/L (14-36); Bilirubin,Total 0.3 mg/dl (0.2-1.3); Blood Urea Nitrogen 14 mg/dl (7-17); Carbon Dioxide 30 mmol/L (22.0-30.0); Estimated Glomerular Filt Rate 86 ml/min (>60); GFR (African American) 104 ML/MIN (>60); Globulin 2.7 g/dL (1.3-3.2)
[2023-04-15 10:49] LABS: Glucose 78 mg/dl (74-100)
== END 2023-04-15 23:59 ==
LOC: LAB 10:08
PROVIDERS: PCP Internal Medicine Adolescent Medicine; Visit Provider Orthopaedic Surgery
DX: Z01.818 Encounter for other preprocedural examination (principal)
CPT/HCPCS: 36415; 80053; 85025

== ENCOUNTER 2023-04-19 12:54 | Day surgery (SDC) | payer OTHER, SELFPAY ==
[2023-04-18 07:58] VITALS: BMI 31.1
[2023-04-19] MEDS: LACTATED RINGERS 1000ML 1,000 ML 25 ML IV (13:04)
[2023-04-19 13:06] VITALS: BP 135/86; PULSE 124; RESP 18; TEMP 36.9; O2SAT 99
[2023-04-19 13:30] LABS: Urine Pregnancy, HCG Qual. Negative (Negative)
--- NOTE | 2023-04-19 14:45 | P.PNANES_ITS ---
[facility] Disclaimer: The information contained in this section may have been updated after the patient was seen, as this information can be updated by other users. Medical History Chest pain Dyspnea Generalized anxiety disorder Kidney stone LGSIL on Pap smear of cervix Major depressive disorder Migraine Mood swings Palpitations Tachycardia Surgical History H/O left wrist surgery Family History Other Breast cancer Social History Smoking Status: Never smoker alcohol intake: current substance use type: denies use current occupational status: employed Travel in the last 8 weeks: Inside the [place] number of children: 0 [facility] Anesthesia Checklist Patient Identification Patient Identification: Arm Band Structural Data Admitted From: Home Planned Operative Procedure/s: Right Carpal Tunnel Release Consent for Planned Operative Procedure(s) Verified: Yes Verified Documents: Surgical Consent and History and Physical NPO Status Verified Time NPO: 00:00 Additional verifications Anesthesia Reactions: Yes Hx Blood Transfusions: No Blood Transfusion Reaction: No Airway Assessment Mallampati Score:: Class II C-Spine Mobility Assessed: Yes TMJ Mobility Assessed: Yes Dentition: Good Dentition Neurological Assessment Level of Consciousness: Awake and Alert Anesthesia Plan Anesthesia Risk discussed: Yes Anesthesia Plan: Verified ASA Class: II Anesthesia Type: MAC
[2023-04-19] MEDS: CLINDAMYCIN PHOSPHATE/D5W 900 MG/50 ML PIGGYBACK 100 MG IV (14:54)
[2023-04-19 15:10] VITALS: BP 119/76; PULSE 149; RESP 18; O2SAT 95
--- NOTE | 2023-04-19 15:17 | EXP.OP.NOTE ---
Date of procedure: 04/19/23 Pre-op Diagnosis:: Right carpal tunnel syndrome Post-op Diagnosis:: Same Procedure performed:: Right endoscopic carpal tunnel release Surgeon:: Kenney Atkinson DO CERTIFIED HAND THERAPIST:: Erick Akbar Anesthesia: MAC and local Estimated blood loss (mL): 0 Operative findings:: See dictation Operative note:: Patient is identified preoperatively. Right wrist marked with yes my initials. Transferred operative suite placed on the operating bed. Given sedation. Right upper extremity was then prepped and draped normal sterile fashion. Once prepped and draped final operative timeout performed to identify proper patient procedure and extremity. Everyone involved the case agreed. No counter indications to beginning. Did receive preoperative antibiotics Marking pen was used to lupillo plan incision over the volar wrist Esmarch was used to exsanguinate the extremity and pneumatic tourniquet inflated to 250 mmHg. Skin knife was used to incise through skin careful dissection was taken down to identify the most proximal aspect transverse carpal ligament retractors were placed the dilators from the segue endoscopic carpal tunnel kit were then utilized followed by the 4.0 mm sled into the carpal tunnel and camera was introduced. Transverse carpal ligament clearly seen superiorly within the camera. The hook probe was used to identify the most distal aspect the transverse carpal ligament rasp was used to remove soft tissue from the undersurface and then the hook blade was used to release the carpal tunnel and cut the transverse carpal ligament. Copious irrigation wound performed skin closed with nylon stitch sterile hand dressing placed patient waken anesthesia taken recovery stable condition. Condition: stable Disposition: PACU Complications:: None apparent
[2023-04-19 15:21] VITALS: BP 143/92; PULSE 118; RESP 17; O2SAT 96
[2023-04-19 15:27] VITALS: BP 143/92; PULSE 124; RESP 18; O2SAT 99
== END 2023-04-19 15:29 | disposition home or self-care (01) ==
PROVIDERS: PCP Internal Medicine Adolescent Medicine; Visit Provider Orthopaedic Surgery
PROC: (CPT 64721; principal; 2023-04-19 13:30)
DX: G56.01 Carpal tunnel syndrome, right upper limb (principal)
CPT/HCPCS: 29848; 81025; 96374

== ENCOUNTER 2023-05-15 15:29 | Outpatient (CLI) | payer OTHER, SELFPAY ==
[2023-05-15 16:18] LABS: D-Dimer 0.54 ug/mL (0.0-0.5)
[2023-05-15 16:23] LABS: Anion Gap 12.8 mEq/L (5-15); Basophils # 0.1 K/mm3 (0-0.2); Basophils % 0.8 % (0.1-2.0); Blood Urea Nitrogen 12 mg/dl (7-17); Calcium 9.2 mg/dl (8.4-10.2); Carbon Dioxide 26 mmol/L (22.0-30.0); Chloride 103 mmol/L (98-107); Eosinophils # 0.1 K/mm3 (0.0-0.4); Eosinophils % 0.7 % (0.1-12.0); Estimated Glomerular Filt Rate 75 ml/min (>60); GFR (African American) 91 ML/MIN (>60); Glucose 101 mg/dl (74-100); Hematocrit 45.8 % (37.0-47.0); Hemoglobin 14.9 g/dL (12.2-16.2); Lymphocytes % 23.4 % (10-50); Mean Corpuscular HGB Conc 32.5 g/dL (31.8-35.4); Mean Corpuscular Hemoglobin 31.2 pg (27.0-31.2); Mean Corpuscular Volume 96.2 fl (81-99); Mean Platelet Volume 7.8 fl (7.4-10.4); Monocytes # 0.4 K/mm3 (0.1-1.0); Monocytes % 4.8 % (1.7-9.3); Neutrophils # 6.1 K/mm3 (1.8-7.8); Neutrophils % 70.3 % (37.0-80.0); Platelet Count 272 K/mm3 (142-424); Potassium 3.8 mmoL/L (3.5-5.1); Red Blood Count 4.76 M/mm3 (4.20-5.40); Red Cell Distribution Width 12.9 % (11.5-17.5); Sodium 138 mmol/L (136-145); White Blood Count 8.6 K/mm3 (4.8-10.8)
[2023-05-15 16:56] LABS: Free T4 (Free Thyroxine) 0.94 ng/dl (0.78-2.19)
[2023-05-16 14:16] LABS: Antinuclear Antibodies, IFA Negative (.)
[2023-05-19 14:59] LABS: Dopamine, Plasma < 30 pg/mL (0-48); Epinephrine, Plasma 18 pg/mL (0-62); Norepinephrine, Plasma 510 pg/mL (0-874)
[2023-05-23 17:21] LABS: Metanephrine Plasma 50.9 pg/mL (0.0-88.0); Normetanephrine Plasma 98.3 pg/mL (0.0-210.1)
[2023-05-25 12:22] LABS: Renin 1.415
== END 2023-05-15 23:59 ==
LOC: LAB 15:29
PROVIDERS: PCP Internal Medicine Adolescent Medicine; Visit Provider Internal Medicine
DX: R06.09 Other forms of dyspnea (principal); R07.81 Pleurodynia; R00.0 Tachycardia, unspecified; R00.2 Palpitations; I10 Essential (primary) hypertension; R79.1 Abnormal coagulation profile; Z79.899 Other long term (current) drug therapy
CPT/HCPCS: 36415; 80048; 82088; 82384; 83520; 83835; 84244; 84439; 84443; 85025; 85378; 86038

== ENCOUNTER 2023-05-16 08:24 | Outpatient (CLI) | payer OTHER, SELFPAY | END 2023-05-16 23:59 | LOC: LAB 08:24 | PROVIDERS: PCP Internal Medicine Adolescent Medicine; Visit Provider Internal Medicine | DX: R06.09 Other forms of dyspnea (principal); R07.81 Pleurodynia; R00.0 Tachycardia, unspecified; R00.2 Palpitations; I10 Essential (primary) hypertension | CPT/HCPCS: 36415; 82533; 84540 ==

== ENCOUNTER 2023-05-19 09:53 | Outpatient (CLI) | payer OTHER, SELFPAY ==
--- NOTE | 2023-05-19 09:54 | CT_ITS ---
FINAL REPORT TECHNIQUE: Then section axial CT images of the chest were obtained with contrast. Three-D reformatted images were also obtained.This study was performed with techniques to keep radiation doses as low as reasonably achievable (ALARA). Individualized dose reduction techniques using automated exposure control or adjustment of mA and/or kV according to the patient''s size were employed. CLINICAL HISTORY: elevate d dimer and chest pain COMPARISON: 11/19/2021 FINDINGS: There is no evidence of pulmonary embolism. There is no evidence of thoracic aortic aneurysm or dissection. There is no evidence of mediastinal or hilar mass or adenopathy. Patchy groundglass opacities may represent edema or alveolitis. Limited images of the upper abdomen are unremarkable. IMPRESSION: No evidence of pulmonary embolism. Patchy groundglass opacities may represent edema or alveolitis. Reviewed, Interpreted and Dictated by Gen Cedeño III, MD Transcribed by Carol Ann De La O Authenticated and [facility]
--- NOTE | 2023-05-19 09:54 | CT_ITS ---
APPROVED REPORT Collection Specialist: CLINICAL INDICATION Chest Pain TECHNIQUE Image Acquisition: A 128 slice MDCT scanner ([employer] View) was used for data acquisition. A noncontrast coronary calcium scan was performed. A CT attenuation threshold of 130 Hounsfield units (HU) was used for the detection of calcium in contiguous voxels of 1 sq mm in area to be counted as individual lesions. Bolus tracking in the ascending aorta with a threshold of 180 HU was performed. Immediately afterwards, ECG synchronized cardiac CT was then performed from the cardiac base to apex using retrospective gating with ECG tube current modulation. A total of 85 mL of Isovue 370 mg/mL contrast medium was administered at 5 mL/sec followed by a saline flush using a biphasic injection protocol. A tube voltage of 120 KVp was used. The patient received the following medications prior to the cardiac CT. 75 mg of oral metoprolol 5 mg of intravenous metoprolol 15 mg of oral ivabradine 0.4 mg of sublingual nitroglycerin The average heart rate at the time of acquisition was 54 bpm and regular. Image Reconstruction Transaxial images were reconstructed at 0.67 mm slide thickness. Data was reviewed interactively on an advanced workstation capable of 2 and 3-dimensional displays in all conventional reconstruction formats, including multiplanar reformations, maximum intensity projections, curved multiplanar reformations, and volume rendered reconstructions. When applicable, selected routine images describing the relevant coronary anatomy and pathology were saved and sent to PACS. Complications None Technical Quality Overall image quality was good. Coronary artery opacification was adequate. Total DLP (Dose-Length Product) is 1636.7 mGy-cm. The reported value represents the total of one or more individual components during the CT acquisition of this date and at this time, and as such, the same value may appear in more than one CT report depending on the interpreting/reporting physicians. COMPARISON None FINDINGS CT Coronary Calcium Scoring LMA (Left Main Artery) = 0 LAD (Left Anterior Descending) = 0 LCX (Left Coronary Circumflex) = 0 RCA (Right Coronary Artery) = 0 Total Calcium Score = 0 using the AJ-130 method. The interpretation of the calcium heart score is based on the following continuum*: 0 = no calcified plaque detected (risk of coronary artery disease is very low ??? less than 5%) 1-10 = calcium detected in extremely minimal levels (risk of coronary diseases is still low ??? less than 10%) 11-100 = mild levels of plaque detected with certainty (mild or minimal narrowing of heart arteries is likely) 101-400 = definite,at least moderate levels of plaque detected (relatively high risk of a heart attack within 3-5 years) >401-999 = extensive levels of plaque detected (high risk of heart attack, high levels of vascular disease are present, high likelihood of at least one significant coronary narrowing) *The calcium heart score quantifies the burden of coronary calcification/plaque in the coronary arteries. The calcium heart score is not able to evaluate the presence or burden of non-calcified (i.e. soft) plaque. There is no identifiable calcification in the aortic valve, mitral annulus or mitral valve, pericardium, or myocardium. Coronary CT Angiography The coronary arterial system is right dominant. Quantitative Stenosis Grading: Left Main (LM): The left main originates normally from the left sinus of Valsalva. The LM bifurcates into the left anterior descending artery and left circumflex artery. The LM is patent with no evidence of atherosclerosis. Left Anterior Descending (LAD) and Diagonal Branches: The LAD gives off 4 diagonal branches. The LAD and its branches are patent with no evidence of atherosclerosis. There is no evidence of LAD-myocardial bridge. Left Circumflex (LCX) and Obtuse Marginals (OM): The LCX gives off 2 Obtuse Marginal (OM) branches. The LCX and its branches are patent with no evidence of atherosclerosis. Right Coronary Artery (RCA): The RCA originates normally from the right sinus of Valsalva. The RCA gives off a posterior descending artery (PDA) and posterolateral (PL) branches. The RCA and its branches are patent with no evidence of atherosclerosis. Non-Coronary Cardiac Findings: Analysis of the left ventricular (LV) structure and function was performed after 3-D reconstruction of the LV from axial images, with user-corrected automatic contouring for assessment of LV volumes and user-defined reconstruction from oblique planes for measurement of 3-D cardiac structure and function. -The left ventricle systolic function is normal. -There is no left atrial appendage filling defect. Two right pulmonary veins and two left pulmonary veins drain normally into the left atrium. -No pericardial thickening or calcification. -Central and branch pulmonary arteries in the [id number] are unremarkable. -Thoracic aorta within the visualized thoracic aortic-branches in the [id number] is unremarkable. Extracardiac Structures No significant extra-cardiac findings. Note, however, that this study is focused on the cardiac findings. IMPRESSION -Absence of coronary calcification with an Agatston score = 0 using the AJ-130 method. -No evidence of significant flow-limiting atherosclerosis of the coronary arteries. -No evidence of coronary anomalies or myocardial bridge. -CAD-RADS 0. Management recommendations per ACC/AHA guidelines*, as clinically appropriate. *Recommendations: CAD RADS 0: Reassurance. Consider non-atherosclerotic causes of chest pain. CAD RADS 1: Consider non-atherosclerotic causes of chest pain. Consider preventive therapy and risk factor modification. CAD RADS 2: Consider non-atherosclerotic causes of chest pain. Consider preventive therapy and risk factor modification, particularly for patients with nonobstructive plaque in multiple segments. CAD RADS 3: Consider further functional testing. Consider symptom-guided anti-ischemic and preventive pharmacotherapy as well as risk factor modification per published guideline statements. CAD RADS 4A: Consider further functional testing or invasive coronary angiography with revascularization per published guideline statements. Consider symptom-guided anti-ischemic and preventive pharmacotherapy as well as risk factor modification per published guideline statements. CAD RADS 4B: Invasive coronary angiography recommended with revascularization per published guideline statements. Consider symptom-guided anti-ischemic and preventive pharmacotherapy as well as risk factor modification per published guideline statements. CAD RADS 5: Consider invasive angiography and/or viability assessment with revascularization per published guideline statements. Consider symptom-guided anti-ischemic and preventive pharmacotherapy as well as risk factor modification per published guideline statements. CRITICAL RESULT None COMMUNICATION Per this written report The coronary and cardiac findings of this CCTA were reviewed, reported, and signed by Federico Bynum MD (Sample Checker) Conclusion Electronically signed by : Jaja Bynum MD 05/22/2023 23:22:41
[2023-05-19 10:08] VITALS: BMI 31.1
[2023-05-19 10:20] LABS: Urine Pregnancy, HCG Qual. Negative (Negative)
[2023-05-19] MEDS: METOPROLOL TARTRATE 50MG TABLET *IVABRADINE+METOPROLOL REGIMINE 50 MG PO (10:39)
[2023-05-19] MEDS: IVABRADINE HCL 7.5MG TABLET *IVABRADINE+METOPROLOL REGIMINE 15 MG PO (10:39)
[2023-05-19] MEDS: METOPROLOL TARTRATE 25MG TABLET *IVABRADINE+METOPROLOL REGIMINE 25 MG PO (10:39)
[2023-05-19 11:32] VITALS: BP 124/85; PULSE 59; RESP 16; O2SAT 100
[2023-05-19] MEDS: NITROGLYCERIN 0.4MG SL TABLET 0.400000000000000022 MG SL (11:32)
[2023-05-19 11:35] VITALS: BP 129/91; PULSE 65; RESP 16; O2SAT 100
[2023-05-19] MEDS: METOPROLOL TARTRATE 5MG/5ML VIAL *IVABRADINE+METOPROLOL REGIMINE 5 MG IV (11:35)
[2023-05-19 11:40] VITALS: BP 110/67; PULSE 54; RESP 16; O2SAT 100
[2023-05-19 11:45] VITALS: BP 98/60; PULSE 51; RESP 16; O2SAT 100
[2023-05-19 11:50] VITALS: BP 122/77; PULSE 66; RESP 16; O2SAT 100
[2023-05-19] MEDS: IOPAMIDOL-370 (76%);100ML BOTTLE 145 ML IV (11:51)
[2023-05-19] MEDS: 0.9 % SODIUM CHLORIDE 50 ML VIAL 100 ML IV (11:51)
[2023-05-19] MEDS: SODIUM CHLORIDE 0.9% 10ML SYR (RAD ONLY) 10 ML IV (11:51)
[2023-05-19 12:00] VITALS: BP 128/76; PULSE 67; RESP 16; O2SAT 100
== END 2023-05-19 12:13 | disposition home or self-care (01) ==
PROVIDERS: PCP Internal Medicine Adolescent Medicine; Visit Provider Internal Medicine
DX: R06.09 Other forms of dyspnea (principal); R07.81 Pleurodynia; R00.0 Tachycardia, unspecified; R00.2 Palpitations; I10 Essential (primary) hypertension; F41.1 Generalized anxiety disorder; R79.89 Other specified abnormal findings of blood chemistry
CPT/HCPCS: 71275; 75571; 75574; 81025; Q9967

== ENCOUNTER 2023-05-22 09:24 | Outpatient (CLI) | payer OTHER, SELFPAY ==
[2023-05-25 23:50] LABS: Metanephrine, U,24hr 128 ug/24 hr (36-209); Metanephrine, Ur 58 ug/L (Undefined); Normetanephr.,U,24h 339 ug/24 hr (95-449); Normetanephrine, Ur 154 ug/L (Undefined)
[2023-05-26 04:19] LABS: Dopamine, Ur, 24hr 233 ug/24 hr (0-510); Dopamine, Urine 106 ug/L (Undefined); Epinephrine, U, 24hr <7 ug/24 hr (0-20); Epinephrine, Urine <3 ug/L (Undefined); Norepinephrine, Ur 22 ug/L (Undefined); Norepinephrine,U,24h 48 ug/24 hr (0-135); VMA, Urine 1.3 mg/L (Undefined); VMA, Urine, 24hr 2.9 mg/24 hr (0.0-7.5)
== END 2023-05-22 23:59 ==
LOC: LAB 09:25
PROVIDERS: PCP Internal Medicine Adolescent Medicine; Visit Provider Internal Medicine
DX: I10 Essential (primary) hypertension (principal); R06.09 Other forms of dyspnea; R00.0 Tachycardia, unspecified; R07.81 Pleurodynia; R00.2 Palpitations
CPT/HCPCS: 82384; 83835; 84585

== ENCOUNTER 2024-05-08 07:26 | Outpatient (CLI) | payer OTHER, SELFPAY ==
--- NOTE | 2024-05-08 07:28 | XR_ITS ---
FINAL REPORT TECHNIQUE: Left wrist 3 views CLINICAL HISTORY: lt wrist pain COMPARISON: 11/02/2016 FINDINGS: LEFT WRIST: 3 images of the left wrist were obtained. A sideplate and orthopedic screws are present in the distal radius, also seen on the prior exam of 2017. There is no evidence of fracture or dislocation. There is no positive or negative ulnar variance present. The joint spaces are intact. There is no soft tissue abnormality identified. IMPRESSION: No acute bony abnormality. Reviewed, Interpreted and Dictated by Juan Francisco Pérez MD Transcribed by Selene Wiseman Authenticated and [facility]
== END 2024-05-08 23:59 | disposition home or self-care (01) ==
LOC: RAD 07:27
PROVIDERS: PCP Internal Medicine; Visit Provider Orthopaedic Surgery
DX: M25.532 Pain in left wrist (principal)
CPT/HCPCS: 73110